=== PATIENT | male | born 1945 | race Caucasian/White ===

== ENCOUNTER 2019-02-23 23:22 | Inpatient (IN) | payer MEDICARE, BC ==
--- NOTE | 2019-02-24 00:19 | EDM.PDOC ---
ED HPI GENERAL MEDICAL PROBLEM - General Chief Complaint: Abdominal Pain Stated Complaint: STOMACH PAIN Time Seen by Provider: 02/24/19 00:00 Source of Information: Reports: Patient History Limitations: Reports: No Limitations - History of Present Illness INITIAL COMMENTS - FREE TEXT/NARRATIVE: 73-year-old male who has had central abdominal pain for the past 9 hours. He has had one bowel movement, some nausea but no vomiting. A small amount of radiation of pain into his back. No fevers or chills. He has a history of diverticulosis, and a remote history of a hernia surgery. He is basically healthy. Onset: Gradual Duration: Hour(s): (9 hours) - Related Data Allergies Allergy/AdvReac Type Severity Reaction Status Date / Time Iodinated Contrast Media Allergy Difficulty Verified 02/23/19 23:42 Breathing Sulfa (Sulfonamide Allergy Hives Verified 02/23/19 23:42 Antibiotics) Home Meds: Home Meds Aspirin 1 tab PO DAILY 02/23/19 [History] Benazepril [Lotensin] 1 tab PO QID 02/23/19 [History] Benzonatate [Tessalon Perle] 1 tab PO BID PRN 02/23/19 [History] Fluticasone Propionate [Flonase] 1 spray INH BID PRN 02/23/19 [History] Omeprazole 1 tab PO ACDINNER 02/23/19 [History] Prednisolone Acetate/Pf [Prednisolone Acet 1% Eye Drop] 1 drop EYEBOTH DAILY [History] Simvastatin [Zocor] 1 tab PO DAILY 02/23/19 [History] Past Medical History Genitourinary History: Reports: Renal Calculus Dermatologic History: Reports: Melanoma - Past Surgical History HEENT Surgical History: Reports: Naso-Sinus Surgery, Tonsillectomy GI Surgical History: Reports: Hernia, Abdominal Social & Family History - Tobacco Use Smoking Status *Q: Never Smoker ED ROS GENERAL - Review of Systems Review Of Systems: See Below Constitutional: Denies: Fever, Chills Respiratory: Denies: Shortness of Breath Cardiovascular: Denies: Chest Pain GI/Abdominal: Reports: Abdominal Pain, Nausea. Denies: Constipation, Diarrhea, Vomiting : Reports: No Symptoms Skin: Reports: No Symptoms Neurological: Reports: No Symptoms ED EXAM, GI/ABD - Physical Exam Exam: See Below Exam Limited By: No Limitations General Appearance: Alert, No Apparent Distress Eyes: Bilateral: Normal Appearance (No jaundice) Respiratory/Chest: No Respiratory Distress, Lungs Clear Cardiovascular: Regular Rate, Rhythm GI/Abdominal Exam: Abnormal Bowel Sounds (Decreased) Extremities: Normal Inspection Neurological: Alert, Oriented Psychiatric: Normal Affect, Normal Mood Skin Exam: Warm Course - Vital Signs Last Recorded V/S: Last Vital Signs Temp 96.3 F 02/24/19 02:56 Pulse 50 L 02/24/19 02:56 Resp 16 02/24/19 02:56 BP 179/67 H 02/24/19 02:56 Pulse Ox 93 L 02/24/19 02:56 - Orders/Labs/Meds Orders: Active Orders 24 hr Category Date Time Status Patient Status [ADT] Routine ADT 02/24/19 02:06 Active Intake and Output [RC] QSHIFT Care 02/24/19 02:08 Active Oxygen Therapy [RC] PRN Care 02/24/19 02:06 Active Up ad Sindi [RC] ASDIRECTED Care 02/24/19 02:05 Active VTE/DVT Education [RC] Per Unit Routine Care 02/24/19 02:06 Active Vital Signs [RC] Q4H Care 02/24/19 02:06 Active Nothing per Oral Now Diet [DIET] Diet 02/24/19 Breakfast Active Ondansetron [Zofran] Med 02/24/19 02:05 Active 4 mg IV Q8H PRN Promethazine [Phenergan] 12.5 mg Med 02/24/19 02:05 Active Sodium Chloride 0.9% [Normal Saline] 50 ml IV Q8H Sequential Compression Device [OM.PC] Per Unit Routine Oth 02/24/19 02:08 Ordered Resuscitation Status Routine Resus Stat 02/24/19 02:05 Ordered Medication Orders Diphenhydramine HCl (Benadryl) 25 - 50 mg IVPUSH Q4H PRN PRN Reason: Itching Diphenhydramine HCl (Benadryl) 25 - 50 mg PO Q4H PRN PRN Reason: Itching Fentanyl (Sublimaze) 10 - 30 mcg IVPUSH Q1H PRN PRN Reason: Pain (severe 7-10) Promethazine HCl 12.5 mg/ (Sodium Chloride) 50.5 mls @ 200 mls/hr IV Q8H PRN PRN Reason: Nausea/Vomiting Sodium Chloride (Normal Saline) 1,000 mls @ 125 mls/hr IV ASDIRECTED COSME Morphine Sulfate (Morphine) 1 - 3 mg IVPUSH Q1H PRN PRN Reason: Pain Last Admin: 02/24/19 03:06 Dose: 2 mg Ondansetron HCl (Zofran) 4 mg IV Q8H PRN PRN Reason: Nausea/Vomiting Scopolamine (Transderm-Scop) 1.5 mg TRDERM Q72H PRN PRN Reason: Nausea Labs: Laboratory Tests 02/24/19 02/24/19 Range/Units 00:14 00:14 WBC 12.8 H (4.5-11.0) K/uL RBC 4.45 (4.30-5.90) M/uL Hgb 13.4 (12.0-15.0) g/dL Hct 40.1 (40.0-54.0) % MCV 90 (80-98) fL MCH 30 (27-31) pg MCHC 33 (32-36) % Plt Count 323 (150-400) K/uL Neut % (Auto) 85 H (36-66) % Lymph % (Auto) 8 L (24-44) % Andrew % (Auto) 6 (2-6) % Eos % (Auto) 0 L (2-4) % Baso % (Auto) 0 (0-1) % Sodium 135 L (140-148) mmol/L Potassium 3.9 (3.6-5.2) mmol/L Chloride 96 L (100-108) mmol/L Carbon Dioxide 30 (21-32) mmol/L Anion Gap 12.9 (5.0-14.0) mmol/L BUN 18 (7-18) mg/dL Creatinine 0.9 (0.8-1.3) mg/dL Est Cr Clr Drug Dosing 68.61 mL/min Estimated GFR (MDRD) > 60 (>60) Glucose 130 H (74-106) mg/dL Calcium 9.5 (8.5-10.1) mg/dL Total Bilirubin 0.4 (0.2-1.0) mg/dL AST 36 (15-37) U/L ALT 92 H (12-78) U/L Alkaline Phosphatase 198 H (46-116) U/L Total Protein 7.8 (6.4-8.2) g/dL Albumin 3.6 (3.4-5.0) g/dL Globulin 4.2 H (2.3-3.5) g/dL Albumin/Globulin Ratio 0.9 L (1.2-2.2) Lipase 50 L (73-393) U/L Meds: Medications Generic Name Dose Route Start Last Admin Trade Name Kellee PRN Reason Stop Dose Admin Diphenhydramine HCl 25 - 50 mg 02/24/19 02:14 Benadryl IVPUSH Q4H PRN Itching Diphenhydramine HCl 25 - 50 mg 02/24/19 02:16 Benadryl PO Q4H PRN Itching Fentanyl 10 - 30 mcg 02/24/19 02:20 Sublimaze IVPUSH Q1H PRN Pain (severe 7-10) Promethazine HCl 12.5 mg/ 50.5 mls @ 200 mls/hr 02/24/19 02:05 Sodium Chloride IV Q8H PRN Nausea/Vomiting Sodium Chloride 1,000 mls @ 125 mls/hr 02/24/19 02:15 Normal Saline IV ASDIRECTED COSME Morphine Sulfate 1 - 3 mg 02/24/19 02:18 02/24/19 03:06 Morphine IVPUSH 2 mg Q1H PRN Administration Pain Ondansetron HCl 4 mg 02/24/19 02:05 Zofran IV Q8H PRN Nausea/Vomiting Scopolamine 1.5 mg 02/24/19 02:14 Transderm-Scop TRDERM Q72H PRN Nausea Discontinued Medications Generic Name Dose Route Start Last Admin Trade Name Kellee PRN Reason Stop Dose Admin Hydromorphone HCl 0.5 mg 02/24/19 01:31 02/24/19 01:56 Dilaudid IVPUSH 02/24/19 01:32 0.5 mg ONETIME ONE Administration Sodium Chloride 1,000 mls @ 250 mls/hr 02/24/19 01:45 02/24/19 01:56 Normal Saline IV 250 mls/hr ASDIRECTED COSME Administration Ondansetron HCl 4 mg 02/24/19 01:38 02/24/19 01:56 Zofran IVPUSH 02/24/19 01:39 4 mg ONETIME ONE Administration - Re-Assessments/Exams Free Text/Narrative Re-Assessment/Exam: 02/24/19 00:19 CBC CMP and lipase were obtained, and an abdomen and pelvis CT without contrast will be obtained. 02/24/19 01:39 White count is mildly elevated at 12.8. Hemoglobin is normal. ALT and alkaline phosphatase are mildly elevated. 02/24/19 01:39 After the patient returned from CT scan he had increased nausea and emesis. An IV was started, patient was given 4 mg of IV Zofran and 0.5 mg of IV Dilaudid. CT appeared to have a small bowel obstruction, awaiting official interpretation. 02/24/19 01:51 IMPRESSION: Prominent dilatation of the mid and distal small bowel extending to an adhesion located in the right upper pelvis. Findings of partial small bowel obstruction. CT of the abdomen shows several small, nonobstructive calculi in the left kidney. CT of the pelvis shows a small amount of free fluid, consistent with partial small bowel obstruction described above. Incompletely examined nodular density in the posterior-lateral left lower lobe, worrisome for carcinoma of the lung. Please see the discussion above. 02/24/19 01:53 Above results were discussed with the patient. Dr. Durbin of surgery was consulted for admission for small bowel obstruction. Departure - Departure Time of Disposition: 02:42 Disposition: Admitted As Inpatient 64 Clinical Impression: Small bowel obstruction Abdominal pain Qualifiers: Abdominal location: generalized Qualified Code(s): R10.84 - Generalized abdominal pain - Discharge Information
[2019-02-24] MEDS ORDERED: HYDROmorphone 0.5 MG/0.5 ML Syringe IVPUSH ONE (01:31)
[2019-02-24] MEDS ORDERED: Ondansetron 4 MG/2 ML SDV IVPUSH ONE (01:38)
[2019-02-24] MEDS ORDERED: Sodium Chloride 0.9% 1,000 ML IV SCH (01:45)
--- NOTE | 2019-02-24 01:50 | CRLCT ---
INDICATION: Abdominal pain COMPARISON: None available TECHNIQUE: CT examination of the abdomen and pelvis was performed without contrast enhancement using 3 mm thick axial sections from the lung bases through the pubic symphysis. Oral contrast was not administered. Please note that all CT scans at this facility use dose modulation, iterative reconstruction, and/or weight-based dosing when appropriate to reduce radiation dose to as low as reasonably achievable. FINDINGS: There is moderate dilatation of the mid and distal small bowel, with no dilatation of the distal ileum. The dilatation extends to a focal point of transition is located in the right upper pelvis on axial image 72 series 2, findings of an adhesion. In the abdomen, the unenhanced liver has a 1 centimeter cyst in the anterior subcapsular region of the medial segment of the liver inferiorly, segment 4B. The rest of the liver is normal in appearance. Spleen, pancreas, and adrenals are normal in appearance. There is a nonobstructive calculus in the upper pole of the left kidney measuring 7 millimeters in diameter. There is a nonobstructive 3 millimeter calculus in the lower pole of the left kidney. The unenhanced kidneys are otherwise normal in appearance. The gallbladder is normal in appearance. The abdominal aorta is normal in caliber with no sign of dilatation. There is no sign of retroperitoneal mass or adenopathy. The stomach, loops of proximal small bowel, and colon in the abdomen are normal in appearance. There is a small fat containing periumbilical hernia. In the pelvis, the retrocecal appendix is the normal in appearance with no sign of inflammatory process. The loops of small bowel and colon in the pelvis are normal in appearance. The prostate is normal in appearance. There is a tiny amount of free fluid in the pelvis, nonspecific. The urinary bladder is normal in appearance. There is no sign of pelvic or inguinal mass or adenopathy. There is an incompletely examined moderate masslike linear density in the posterior-lateral left lung base. This is not clearly an area of scarring or atelectasis, and I am worried that this represents an area of malignancy. Recommend correlation with any previous CT scanning of the chest or abdomen. If no previous examination is available, recommend PET/CT scanning of the chest. There is mild linear density in the posterior right lung base adjacent to the nodular area of density, The rest of the visualized lung base is clear. The osseous structures are normal in appearance for the patient`s age. IMPRESSION: Prominent dilatation of the mid and distal small bowel extending to an adhesion located in the right upper pelvis. Findings of partial small bowel obstruction. CT of the abdomen shows several small, nonobstructive calculi in the left kidney. CT of the pelvis shows a small amount of free fluid, consistent with partial small bowel obstruction described above. Incompletely examined nodular density in the posterior-lateral left lower lobe, worrisome for carcinoma of the lung. Please see the discussion above. Please note that all CT scans at this facility use dose modulation, iterative reconstruction, and/or weight-based dosing when appropriate to reduce radiation dose to as low as reasonably achievable. Dictated by Marquise Ruvalcaba MD @ Feb 24 2019 1:38AM Signed by Dr. Marquise Ruvalcaba @ Feb 24 2019 1:47AM
[2019-02-24] MEDS ORDERED: Promethazine 12.5 MG in Sodium Chloride 0.9% 50 ML IV PRN (02:05)
[2019-02-24] MEDS ORDERED: Scopolamine 1.5 MG Transdermal Patch TRDERM PRN (02:14)
[2019-02-24] MEDS ORDERED: diphenhydrAMINE 50 MG/ML SDV IVPUSH PRN (02:14)
[2019-02-24] MEDS ORDERED: diphenhydrAMINE 25 MG Cap PO PRN (02:16)
[2019-02-24] MEDS: Morphine 2 MG/ML Syringe IVPUSH PRN ×3 (03:06→19:45)
[2019-02-24] MEDS: fentaNYL 100 MCG/2 ML SDV IVPUSH PRN ×3 (04:39→07:46)
[2019-02-24] MEDS: Ondansetron 4 MG/2 ML SDV IV PRN (09:09)
[2019-02-24] MEDS: Sodium Chloride 0.9% 1,000 ML IV SCH ×3 (09:13→22:57)
[2019-02-24] MEDS ORDERED: Meropenem 500 MG SDV ONE (09:25)
[2019-02-24] MEDS ORDERED: Rocuronium 50 MG/5 ML Vial ONE ×2 (09:35→09:36)
[2019-02-24] MEDS ORDERED: Glycopyrrolate 0.2 MG/ML 5 ML MDV ONE (09:35)
[2019-02-24] MEDS ORDERED: Neostigmine Methylsulfate 1 MG/ML 5 ML Syringe ONE (09:35)
[2019-02-24] MEDS ORDERED: Propofol 200 MG/20 ML SDV ONE (09:35)
[2019-02-24] MEDS ORDERED: Dexamethasone 4 MG/ML SDV ONE (09:35)
[2019-02-24] MEDS ORDERED: Succinylcholine 200 MG/10 ML MDV ONE (09:35)
[2019-02-24] MEDS ORDERED: Ondansetron 4 MG/2 ML SDV ONE (09:35)
[2019-02-24] MEDS ORDERED: fentaNYL 250 MCG/5 ML SDV ONE ×2 (09:35→10:36)
[2019-02-24] MEDS ORDERED: ceFAZolin 1 GM Vial ONE (10:31)
[2019-02-24] MEDS ORDERED: Bupivacaine 0.5%/EPINEPHrine 1:200,000 50 ML MDV ONE (11:43)
[2019-02-24] MEDS ORDERED: Ketorolac 60 MG/2 ML SDV ONE (11:48)
[2019-02-24] MEDS: hydrOXYzine HCl 100 MG/2 ML SDV IM PRN (12:21)
[2019-02-25] MEDS: Morphine 2 MG/ML Syringe IVPUSH PRN ×2 (03:31→05:58)
[2019-02-25] MEDS: Sodium Chloride 0.9% 1,000 ML IV SCH (07:08)
[2019-02-25] MEDS ORDERED: Benzonatate 100 MG Cap PO PRN (07:59)
[2019-02-25] MEDS ORDERED: Fluticasone Propionate Nasal Spray 16 GM Bottle NASBOTH PRN (07:59)
--- NOTE | 2019-02-25 08:27 | CONS ---
DATE OF SERVICE: 02/24/2019 REFERRING PHYSICIAN: CONSULTING PHYSICIAN: Johnnie Durbin MD REASON FOR CONSULTATION: Abdominal pain. HISTORY OF PRESENT ILLNESS: A pleasant 73-year-old male with abdominal pain for approximately 8 hours or so. However, this abdominal pain is related to some constipation, which has been progressively worse over the last several weeks. Aside from this, this is a new problem for him. He does have a history of inguinal hernia surgery. The patient also was noted to have diverticulosis. His pain is 3 to 4/10 and marginally controlled with IV pain medication. PAST MEDICAL HISTORY: Kidney stones, melanoma, tonsillectomy, and inguinal hernia as described above. SOCIAL HISTORY: He does not smoke. FAMILY HISTORY: Noncontributory. REVIEW OF SYSTEMS: GENERAL: The patient is appropriate for condition. HEENT: He does have close contact and was being evaluated for bronchitis with recent steroid usage. CARDIOVASCULAR: No history of myocardial infarction. GI: As above. GENITOURINARY: No dysuria. SKIN: No abnormalities. NEUROLOGIC: No abnormalities. SKIN: History of melanoma. PHYSICAL EXAMINATION: VITAL SIGNS: Blood pressure 190/87, pulse 87, respirations 14, and 97% on room air. GENERAL: The patient is resting fairly comfortably. HEENT: Pupils are equal. NECK: Supple. CARDIOVASCULAR: Regular rhythm and rate. RESPIRATORY: Lungs are clear to auscultation bilaterally. ABDOMEN: Moderately distended. Minimal pain with palpation. EXTREMITIES: Full range of motion. NEUROLOGIC: Alert and oriented x3. PSYCH: No gross depression. LABORATORY DATA: Laboratory results show white blood cell count of 12.8, platelets 323,000, and creatinine 0.9. IMAGING: I did review the CT scan, which suggests a small bowel obstruction, partial. ASSESSMENT AND PLAN: The patient will be taken to the operating room for laparoscopic evaluation for possible small bowel resection, open surgery. We discussed risks, benefits, alternatives, and limitations of this plan including, but not limited to infection, bleeding, injury to abdominal structures, abscess formation, anastomotic failure, cardiovascular compromise, and . The patient understands these risks and wishes to proceed. Johnnie Durbin MD /[id number]
--- NOTE | 2019-02-25 08:36 | OR ---
DATE OF PROCEDURE: 02/24/2019 SURGEON: Johnnie Durbin MD PROCEDURES: 1. Repair of internal hernia (90907). 2. Small bowel resection, single anastomosis (58009). 3. Drainage and culture of peritonitis of the abdomen, non-appendiceal (30154). COMPLICATIONS: None. EM PHYSICIAN: None. ANESTHESIA: General/local. RISKS: Risks, benefits, alternatives, and limitations including, but not limited to infection, bleeding, requirement for open surgery, requirement for small bowel resection, cardiovascular collapse, small bowel resection anastomotic failure, abscess, sepsis, and were all explained to the patient as possible risks. He understands and wishes to proceed. PROCEDURE IN DETAIL: The patient was placed in supine position. The abdomen was prepped and draped. Approximately 5 cm superior to the umbilicus, a midline abdominal incision was made. A Veress needle was used to enter the abdomen without abnormality. A drop test was performed without abnormality. 10 mm trocar was entered under direct visualization. This was followed by 3 additional 5s and one would be upsized to a 10 during this procedure. Immediately, it was noted that the patient had a large fluid collection, which was blood tinge, noted in the pelvis. This was related to diffuse peritonitis within the abdomen. This was cultured, suctioned and removed. Multiple images were taken of this. The small bowel was inspected next. The patient had a nonviable piece of small bowel noted in the ileum, mid. This was associated with an internal hernia, due to scarring around the area of the cecum causing significant vascular compromise. Small bowel was then ran in antegrade and retrograde fashion. This took approximately 15 minutes, and during this time, the liver was also inspected and no abnormalities were noted. The colon did not show any gross significant abnormalities. At this point, greater than 15 minutes had gone by, and the area of vascular compromise was reinspected. This was found to be nonviable and required resection. The laparoscopic small bowel resection was then performed. This was performed by transecting the small bowel with zendejas loads using 45 Gy vascular loads. The specimen will be removed and sent to Pathology. The [id number]-lv-[id number] functional anastomosis was then performed next. A suture was then placed approximately 8 cm from the stapled ends. Defects were created in the antimesenteric side and zendejas load stapler x2 was used to create the anastomosis. Additional zendejas load was used to transect the small bowel. This portion was then delivered. The transection was inspected at multiple angles to ensure there was no remnant defect and none was noted. The abdomen was thoroughly irrigated with meropenem-containing solution. The mesentery defect was closed, and Tisseel was applied. Of note, prior to this, once the internal hernia was reduced, the Harmonic Scalpel was used to transect the internal hernia defect, thus negating its future effect. No bleeding was noted during this. The pressure was lowered and no abnormalities were noted. The abdomen was then irrigated with more meropenem-containing solution. The air was removed. Of note, the small bowel was removed from the superior port and was also irrigated along with all the other ports at the end of the procedure. The wounds were closed with 3-0 Vicryl and 4-0 Vicryl in an interrupted and running fashion. Dermabond was applied. The patient tolerated the procedure well. Johnnie Durbin MD /[id number]
[2019-02-25] MEDS: Acetaminophen/HYDROcodone 325-5 MG Tab PO PRN ×3 (09:46→21:41)
[2019-02-25] MEDS: Piperacillin/Tazobactam/Dext 3.375 GM in Premix Bag 1 BAG IV SCH ×3 (09:47→20:16)
[2019-02-25] MEDS: prednisoLONE Acetate 1% Ophth Susp 5 ML Bottle EYEBOTH SCH (09:53)
[2019-02-25] MEDS ORDERED: diphenhydrAMINE 50 MG/ML SDV IVPUSH ONE (10:00)
[2019-02-25] MEDS ORDERED: methylPREDNISolone Sodium Succinate 40 MG/1 ML SDV IVPUSH SCH (10:00)
[2019-02-25] MEDS: D5 1/2 NS w/ 20 mEq/L KCl 1,000 ML IV SCH ×2 (11:30→21:44)
--- NOTE | 2019-02-25 14:44 | CT ---
Chest wo Cont CLINICAL HISTORY: Lung mass TECHNIQUE: Transverse scans were obtained from the thoracic inlet to the lung bases without contrast. Auto dosage reduction and iterative reconstruction techniques employed. COMPARISONS: CT abdomen 02/24/2019 FINDINGS: There is a 4 mm pleural-based pulmonary nodule in the superior segment of the right lower lobe. It is noncalcified. There is a small right pleural effusion. There is a 2 mm noncalcified subpleural nodule in the left apex laterally. There is a 2.4 x 3.7 x 4.5 cm pleural-based irregular shaped masslike density in the left lower lobe posterior laterally. There is a small left pleural effusion. No mediastinal mass or lymphadenopathy is identified. There are a few small lymph nodes in the retrocrural region. Largest on the right measures 14 x 10 mm. No adrenal lesions are seen. IMPRESSION: 2.4 x 3.7 x 4.5 cm irregular pleural-based masslike density, infiltrate or consolidation in the lateral basal segment of the left lower lobe. Neoplasm is not excluded. PET scan should be considered 4 mm pleural-based nodule in the superior segment of the right lower lobe Punctate nodule left upper lobe
[2019-02-26] MEDS: Piperacillin/Tazobactam/Dext 3.375 GM in Premix Bag 1 BAG IV SCH ×2 (02:33→08:42)
[2019-02-26] MEDS: Acetaminophen/HYDROcodone 325-5 MG Tab PO PRN ×3 (02:39→21:02)
[2019-02-26] MEDS: D5 1/2 NS w/ 20 mEq/L KCl 1,000 ML IV SCH (06:28)
[2019-02-26] MEDS: prednisoLONE Acetate 1% Ophth Susp 5 ML Bottle EYEBOTH SCH (08:48)
--- NOTE | 2019-02-26 13:16 | PN ---
DATE OF SERVICE: 02/26/2019 SUBJECTIVE: The patient is doing very well. Pain is well controlled. He is having bowel movements. No nausea, vomiting, shortness of breath, or chest pain. He is tolerating diet well. OBJECTIVE: VITAL SIGNS: Stable. CARDIOVASCULAR: Regular rhythm and rate. RESPIRATORY: Lungs are clear to auscultation bilaterally. ABDOMEN: Incision is healing well. Abdominal binder on. ASSESSMENT: Status post small bowel resection. PLAN: 1. The patient will advance his diet today. 2. We will saline lock him. 3. We will stop his antibiotics. 4. Anticipate discharge in a.m. Johnnie Durbin MD /[id number]
[2019-02-27] MEDS: Ondansetron 4 MG/2 ML SDV IV PRN (01:01)
[2019-02-27] MEDS ORDERED: Calcium Carbonate 500 MG Tab.Chew PO PRN (01:58)
[2019-02-27] MEDS ORDERED: D5 1/2 NS w/ 20 mEq/L KCl 1,000 ML IV SCH (02:00)
[2019-02-27] MEDS: Morphine 2 MG/ML Syringe IVPUSH PRN (02:18)
--- NOTE | 2019-02-27 05:01 | CRLCR ---
Indication: Postop ileus Technique: Abdomen 2 view Comparison: Abdomen and pelvis CT 02/24/2019 Findings/Impression: Suture material is present within the right abdomen with multiple dilated loops of small bowel and relative colonic decompression. Appearance is consistent with a small-bowel obstruction. No pneumatosis or pneumoperitoneum seen. Dictated by Clem Graham MD @ Feb 27 2019 4:58AM Signed by Dr. Clem Graham @ Feb 27 2019 5:00AM
--- NOTE | 2019-02-27 09:25 | CRLCR ---
Indication: Tube placement. Technique: Abdomen 1 view. Comparison: None. Impression: NG tube is in satisfactory position with the tip in the mid to distal stomach. The degree of bowel dilatation has slightly improved. No new abnormality. Dictated by Hadley Parker MD @ 02/27/2019 9:23:10 AM Dictated by: Hadley Parker MD @ 02/27/2019 09:23:39 (Electronically Signed)
[2019-02-27] MEDS: prednisoLONE Acetate 1% Ophth Susp 5 ML Bottle EYEBOTH SCH (10:39)
[2019-02-27] MEDS: D5 1/2 NS w/ 20 mEq/L KCl 1,000 ML IV SCH ×2 (15:13→22:45)
[2019-02-28] MEDS: D5 1/2 NS w/ 20 mEq/L KCl 1,000 ML IV SCH ×3 (07:03→23:36)
[2019-02-28] MEDS: prednisoLONE Acetate 1% Ophth Susp 5 ML Bottle EYEBOTH SCH ×2 (07:35→09:32)
--- NOTE | 2019-02-28 16:54 | PCM.SURGPN ---
- General Info Date of Service: 02/28/19 Date of Surgery/Procedure: 02/24/19 POD#: 4 Post-Op Diagnosis: Internal hernia, small bowel resection. Functional Status: Reports: Pain Controlled, Ambulating, Urinating, Incentive Spirometry. Denies: Tolerating Diet (NPO, NG in place) - Review of Systems General: Reports: No Symptoms HEENT: Reports: No Symptoms Pulmonary: Reports: No Symptoms Cardiovascular: Reports: No Symptoms Gastrointestinal: Reports: Flatus Genitourinary: Reports: No Symptoms Musculoskeletal: Reports: No Symptoms Skin: Reports: No Symptoms Neurological: Reports: No Symptoms Psychiatric: Reports: No Symptoms - Patient Data Vitals - Most Recent: Last Vital Signs Temp 95.9 F 02/28/19 13:59 Pulse 87 02/28/19 13:59 Resp 18 02/28/19 13:59 BP 151/77 H 02/28/19 13:59 Pulse Ox 97 02/28/19 13:59 Weight - Most Recent: 165 lb 15.988 oz I&O - Last 24 Hours: Intake & Output 02/28/19 02/28/19 02/28/19 06:59 14:59 22:59 Intake Total 1735 Output Total 1250 100 Balance 485 -100 Med Orders - Current: Current Medications Hydrocodone Bitart/Acetaminophen ([place] 325-5 Mg) 1 - 2 tab PO Q4H PRN PRN Reason: Abdominal Pain Last Admin: 02/26/19 21:02 Dose: 2 tab Benazepril HCl (Lotensin) 10 mg PO DAILY [facility] Last Admin: 02/28/19 09:32 Dose: Not Given Benzonatate (Tessalon Perles) 100 mg PO BID PRN PRN Reason: Cough Calcium Carbonate/Glycine (Tums) 1,000 mg PO Q2H PRN PRN Reason: Indigestion Last Admin: 02/27/19 02:21 Dose: 1,000 mg Diphenhydramine HCl (Benadryl) 25 - 50 mg IVPUSH Q4H PRN PRN Reason: Itching Diphenhydramine HCl (Benadryl) 25 - 50 mg PO Q4H PRN PRN Reason: Itching Fentanyl (Sublimaze) 10 - 30 mcg IVPUSH Q1H PRN PRN Reason: Pain (severe 7-10) Last Admin: 02/24/19 07:46 Dose: 25 mcg Fluticasone Propionate (Flonase) 0 gm NASBOTH BID PRN PRN Reason: Allergies Hydroxyzine HCl (Vistaril) 100 mg IM Q6H PRN PRN Reason: Nausea Last Admin: 02/24/19 12:21 Dose: 100 mg Promethazine HCl 12.5 mg/ (Sodium Chloride) 50.5 mls @ 200 mls/hr IV Q8H PRN PRN Reason: Nausea/Vomiting Potassium Chloride/Dextrose/Sod Cl (D5 1/2 Ns W/ 20 Meq/L Kcl) 1,000 mls @ 125 mls/hr IV ASDIRECTED [facility] Last Admin: 02/28/19 16:04 Dose: 125 mls/hr Morphine Sulfate (Morphine) 1 - 3 mg IVPUSH Q1H PRN PRN Reason: Pain Last Admin: 02/27/19 02:18 Dose: 2 mg Ondansetron HCl (Zofran) 4 mg IV Q8H PRN PRN Reason: Nausea/Vomiting Last Admin: 02/27/19 01:01 Dose: 4 mg Prednisolone Acetate (Pred Forte 1% Ophth Susp) 0 ml EYEBOTH DAILY [facility] Last Admin: 02/28/19 09:32 Dose: Not Given Scopolamine (Transderm-Scop) 1.5 mg TRDERM Q72H PRN PRN Reason: Nausea Discontinued Medications Alvimopan (Entereg) 12 mg PO ONETIME ONE Stop: 02/24/19 12:31 Last Admin: 02/24/19 12:52 Dose: 12 mg Bupivacaine HCl/Epinephrine Bitart ([place] 0.5%/Epinephrine 1:200,000) Confirm Administered Dose 50 ml .ROUTE .STK-MED ONE Stop: 02/24/19 11:44 Last Admin: 02/24/19 11:45 Dose: 40 ml Cefazolin Sodium (Ancef) Confirm Administered Dose 2 gm .ROUTE .STK-MED ONE Stop: 02/24/19 10:32 Dexamethasone (Dexamethasone) Confirm Administered Dose 4 mg .ROUTE .STK-MED ONE Stop: 02/24/19 09:36 Diphenhydramine HCl (Benadryl) 50 mg IVPUSH ONETIME ONE Stop: 02/25/19 10:01 Fentanyl (Sublimaze) Confirm Administered Dose 250 mcg .ROUTE .STK-MED ONE Stop: 02/24/19 09:36 Fentanyl (Sublimaze) Confirm Administered Dose 250 mcg .ROUTE .K-MED ONE Stop: 02/24/19 10:37 Glycopyrrolate (Robinul) Confirm Administered Dose 1 mg .ROUTE .STK-MED ONE Stop: 02/24/19 09:36 Hydromorphone HCl (Dilaudid) 0.5 mg IVPUSH ONETIME ONE Stop: 02/24/19 01:32 Last Admin: 02/24/19 01:56 Dose: 0.5 mg Sodium Chloride (Normal Saline) 1,000 mls @ 250 mls/hr IV ASDIRECTED [facility] Last Admin: 02/24/19 01:56 Dose: 250 mls/hr Sodium Chloride (Normal Saline) 1,000 mls @ 125 mls/hr IV ASDIRECTED [facility] Last Admin: 02/25/19 07:08 Dose: 125 mls/hr Piperacillin/Tazobactam/ (Dextrose 3.375 gm/ Premix) 50 mls @ 100 mls/hr IV Q6H [facility] Last Admin: 02/26/19 08:42 Dose: 100 mls/hr Potassium Chloride/Dextrose/Sod Cl (D5 1/2 Ns W/ 20 Meq/L Kcl) 1,000 mls @ 125 mls/hr IV ASDIRECTED [facility] Last Admin: 02/26/19 06:28 Dose: 125 mls/hr Potassium Chloride/Dextrose/Sod Cl (D5 1/2 Ns W/ 20 Meq/L Kcl) 1,000 mls @ 50 mls/hr IV ASDIRECTED [facility] Last Infusion: 02/27/19 08:00 Dose: 125 mls/hr Ketorolac Tromethamine (Toradol) Confirm Administered Dose 60 mg .ROUTE .STK- MED ONE Stop: 02/24/19 11:49 Meropenem (Merrem) Confirm Administered Dose 500 mg .ROUTE .[facility]-MED ONE Stop: 02/24/19 09:26 Last Admin: 02/24/19 11:12 Dose: 500 mg Methylprednisolone Sodium Succinate (Solu-Medrol) 40 mg IVPUSH Q4H [facility] Neostigmine Methylsulfate (Neostigmine) Confirm Administered Dose 5 mg .ROUTE .STK-MED ONE Stop: 02/24/19 09:36 Ondansetron HCl (Zofran) 4 mg IVPUSH ONETIME ONE Stop: 02/24/19 01:39 Last Admin: 02/24/19 01:56 Dose: 4 mg Ondansetron HCl (Zofran) Confirm Administered Dose 4 mg .ROUTE .STK-MED ONE Stop: 02/24/19 09:36 Propofol (Diprivan 20 Ml) Confirm Administered Dose 200 mg .ROUTE .STK-MED ONE Stop: 02/24/19 09:36 Rocuronium [place] (Zemuron) Confirm Administered Dose 50 mg .ROUTE .STK-MED ONE Stop: 02/24/19 09:36 Rocuronium [place] (Zemuron) Confirm Administered Dose 50 mg .ROUTE .STK-MED ONE Stop: 02/24/19 09:37 Succinylcholine Chloride (Quelicin) Confirm Administered Dose 200 mg .ROUTE .STK -MED ONE Stop: 02/24/19 09:36 - Exam Wound/Incisions: Healing Well General: Alert, Oriented, Cooperative, No Acute Distress Lungs: Clear to Auscultation, Normal Respiratory Effort Cardiovascular: Regular Rate, Regular Rhythm GI/Abdominal Exam: Abnormal Bowel Sounds (Hypoactive) Extremities: Normal Inspection Skin: Warm, Dry, Intact Neurological: No New Focal Deficit Psy/Mental Status: Alert, Normal Affect, Normal Mood - Problem List & Annotations (1) Small bowel obstruction SNOMED Code(s): 394613793 Code(s): K56.609 - UNSP INTESTNL OBST, UNSP TO PARTIAL VERSUS COMPLETE OBST Status: Acute Current Visit: Yes - Problem List Review Problem List Initiated/Reviewed/Updated: Yes - My Orders Last 24 Hours: Active Orders 24 hr Category Date Time Status Abdomen 2V AP Flat Upright [CR] Routine Exams 03/01/19 05:00 Ordered Medication Orders Hydrocodone Bitart/Acetaminophen (Seth 325-5 Mg) 1 - 2 tab PO Q4H PRN PRN Reason: Abdominal Pain Last Admin: 02/26/19 21:02 Dose: 2 tab Admin: 02/26/19 14:51 Dose: 2 tab Admin: 02/26/19 02:39 Dose: 2 tab Admin: 02/25/19 21:41 Dose: 2 tab Admin: 02/25/19 15:41 Dose: 2 tab Admin: 02/25/19 09:46 Dose: 2 tab Benazepril HCl (Lotensin) 10 mg PO DAILY [facility] Last Admin: 02/28/19 09:32 Dose: Not Given Admin: 02/28/19 07:34 Dose: 10 mg Admin: 02/27/19 10:37 Dose: 10 mg Admin: 02/26/19 08:47 Dose: Admin: 02/25/19 09:55 Dose: 10 mg Benzonatate (Tessalon Perles) 100 mg PO BID PRN PRN Reason: Cough Calcium Carbonate/Glycine (Tums) 1,000 mg PO Q2H PRN PRN Reason: Indigestion Last Admin: 02/27/19 02:21 Dose: 1,000 mg Diphenhydramine HCl (Benadryl) 25 - 50 mg IVPUSH Q4H PRN PRN Reason: Itching Diphenhydramine HCl (Benadryl) 25 - 50 mg PO Q4H PRN PRN Reason: Itching Fentanyl (Sublimaze) 10 - 30 mcg IVPUSH Q1H PRN PRN Reason: Pain (severe 7-10) Last Admin: 02/24/19 07:46 Dose: 25 mcg Admin: 02/24/19 06:32 Dose: 25 mcg Admin: 02/24/19 04:39 Dose: 25 mcg Fluticasone Propionate (Flonase) 0 gm NASBOTH BID PRN PRN Reason: Allergies Hydroxyzine HCl (Vistaril) 100 mg IM Q6H PRN PRN Reason: Nausea Last Admin: 02/24/19 12:21 Dose: 100 mg Promethazine HCl 12.5 mg/ (Sodium Chloride) 50.5 mls @ 200 mls/hr IV Q8H PRN PRN Reason: Nausea/Vomiting Potassium Chloride/Dextrose/Sod Cl (D5 1/2 Ns W/ 20 Meq/L Kcl) 1,000 mls @ 125 mls/hr IV ASDIRECTED [facility] Last Admin: 02/28/19 16:04 Dose: 125 mls/hr Infusion: 02/28/19 15:03 Dose: 125 mls/hr Admin: 02/28/19 07:03 Dose: 125 mls/hr Infusion: 02/28/19 06:45 Dose: 125 mls/hr Admin: 02/27/19 22:45 Dose: 125 mls/hr Infusion: 02/27/19 22:45 Dose: 125 mls/hr Admin: 02/27/19 15:13 Dose: 125 mls/hr Morphine Sulfate (Morphine) 1 - 3 mg IVPUSH Q1H PRN PRN Reason: Pain Last Admin: 02/27/19 02:18 Dose: 2 mg Admin: 02/25/19 05:58 Dose: 2 mg Admin: 02/25/19 03:31 Dose: 2 mg Admin: 02/24/19 19:45 Dose: 2 mg Admin: 02/24/19 09:08 Dose: 2 mg Admin: 02/24/19 03:06 Dose: 2 mg Ondansetron HCl (Zofran) 4 mg IV Q8H PRN PRN Reason: Nausea/Vomiting Last Admin: 02/27/19 01:01 Dose: 4 mg Admin: 02/24/19 09:09 Dose: 4 mg Prednisolone Acetate (Pred Forte 1% Ophth Susp) 0 ml EYEBOTH DAILY [facility] Last Admin: 02/28/19 09:32 Dose: Not Given Admin: 02/28/19 07:35 Dose: 1 ea Admin: 02/27/19 10:39 Dose: 1 ea Admin: 02/26/19 08:48 Dose: Admin: 02/25/19 09:53 Dose: 1 drop Scopolamine (Transderm-Scop) 1.5 mg TRDERM Q72H PRN PRN Reason: Nausea - Assessment Assessment (Free Text/Narrative):: Improving. Leave in NG one more day. - Plan Plan (Free Text/Narrative):: Leave in NG one more day. Flat/upright films in AM.
--- NOTE | 2019-03-01 06:01 | CRLCR ---
Indication: Ileus follow-up Technique: Abdomen 1 view, 2 films Comparison: Abdomen 02/27/2019 Findings/Impression: An orogastric tube is present at the fundus of the stomach with multiple dilated loops of small bowel. Suture material is present within the right abdomen with no significant colonic dilatation. Findings are consistent with a small-bowel obstruction with mild interval increased dilation compared to the study 2 days prior. Dictated by Clem Graham MD @ Mar 01 2019 5:57AM Signed by Dr. Clem Graham @ Mar 01 2019 5:59AM
[2019-03-01] MEDS: D5 1/2 NS w/ 20 mEq/L KCl 1,000 ML IV SCH ×2 (08:08→16:21)
--- NOTE | 2019-03-01 10:08 | PCM.SURGPN ---
- General Info Date of Service: 03/01/19 Date of Surgery/Procedure: 02/24/19 POD#: 5 Post-Op Diagnosis: Internal hernia with infarcted small bowel. Functional Status: Reports: Pain Controlled, Ambulating, Urinating. Denies: Tolerating Diet (NG in place. ) - Review of Systems General: Reports: No Symptoms HEENT: Reports: No Symptoms Pulmonary: Reports: No Symptoms Cardiovascular: Reports: No Symptoms Gastrointestinal: Reports: Flatus, Other (Says he had two small BM's this morning.) Genitourinary: Reports: No Symptoms Musculoskeletal: Reports: No Symptoms Skin: Reports: No Symptoms Neurological: Reports: No Symptoms Psychiatric: Reports: No Symptoms - Patient Data Vitals - Most Recent: Last Vital Signs Temp 95.1 F L 03/01/19 07:00 Pulse 81 03/01/19 07:00 Resp 16 03/01/19 07:00 BP 164/71 H 03/01/19 07:00 Pulse Ox 98 03/01/19 07:00 Weight - Most Recent: 165 lb 15.988 oz I&O - Last 24 Hours: Intake & Output 02/28/19 03/01/19 03/01/19 22:59 06:59 14:59 Intake Total 1285 1607 Output Total 500 400 Balance 785 1207 Med Orders - Current: Current Medications Hydrocodone Bitart/Acetaminophen ([place] 325-5 Mg) 1 - 2 tab PO Q4H PRN PRN Reason: Abdominal Pain Last Admin: 02/26/19 21:02 Dose: 2 tab Benazepril HCl (Lotensin) 10 mg PO DAILY [facility] Last Admin: 02/28/19 09:32 Dose: Not Given Benzonatate (Tessalon Perles) 100 mg PO BID PRN PRN Reason: Cough Calcium Carbonate/Glycine (Tums) 1,000 mg PO Q2H PRN PRN Reason: Indigestion Last Admin: 02/27/19 02:21 Dose: 1,000 mg Diphenhydramine HCl (Benadryl) 25 - 50 mg IVPUSH Q4H PRN PRN Reason: Itching Diphenhydramine HCl (Benadryl) 25 - 50 mg PO Q4H PRN PRN Reason: Itching Fentanyl (Sublimaze) 10 - 30 mcg IVPUSH Q1H PRN PRN Reason: Pain (severe 7-10) Last Admin: 02/24/19 07:46 Dose: 25 mcg Fluticasone Propionate (Flonase) 0 gm NASBOTH BID PRN PRN Reason: Allergies Hydroxyzine HCl (Vistaril) 100 mg IM Q6H PRN PRN Reason: Nausea Last Admin: 02/24/19 12:21 Dose: 100 mg Promethazine HCl 12.5 mg/ (Sodium Chloride) 50.5 mls @ 200 mls/hr IV Q8H PRN PRN Reason: Nausea/Vomiting Potassium Chloride/Dextrose/Sod Cl (D5 1/2 Ns W/ 20 Meq/L Kcl) 1,000 mls @ 125 mls/hr IV ASDIRECTED [facility] Last Admin: 03/01/19 08:08 Dose: 125 mls/hr Morphine Sulfate (Morphine) 1 - 3 mg IVPUSH Q1H PRN PRN Reason: Pain Last Admin: 02/27/19 02:18 Dose: 2 mg Ondansetron HCl (Zofran) 4 mg IV Q8H PRN PRN Reason: Nausea/Vomiting Last Admin: 02/27/19 01:01 Dose: 4 mg Prednisolone Acetate (Pred Forte 1% Ophth Susp) 0 ml EYEBOTH DAILY [facility] Last Admin: 02/28/19 09:32 Dose: Not Given Scopolamine (Transderm-Scop) 1.5 mg TRDERM Q72H PRN PRN Reason: Nausea Discontinued Medications Alvimopan (Entereg) 12 mg PO ONETIME ONE Stop: 02/24/19 12:31 Last Admin: 02/24/19 12:52 Dose: 12 mg Bupivacaine HCl/Epinephrine Bitart (Marcaine 0.5%/Epinephrine 1:200,000) Confirm Administered Dose 50 ml .ROUTE .STK-MED ONE Stop: 02/24/19 11:44 Last Admin: 02/24/19 11:45 Dose: 40 ml Cefazolin Sodium (Ancef) Confirm Administered Dose 2 gm .ROUTE .STK-MED ONE Stop: 02/24/19 10:32 Dexamethasone (Dexamethasone) Confirm Administered Dose 4 mg .ROUTE .STK-MED ONE Stop: 02/24/19 09:36 Diphenhydramine HCl (Benadryl) 50 mg IVPUSH ONETIME ONE Stop: 02/25/19 10:01 Fentanyl (Sublimaze) Confirm Administered Dose 250 mcg .ROUTE .STK-MED ONE Stop: 02/24/19 09:36 Fentanyl (Sublimaze) Confirm Administered Dose 250 mcg .ROUTE .STK-MED ONE Stop: 02/24/19 10:37 Glycopyrrolate (Robinul) Confirm Administered Dose 1 mg .ROUTE .STK-MED ONE Stop: 02/24/19 09:36 Hydromorphone HCl (Dilaudid) 0.5 mg IVPUSH ONETIME ONE Stop: 02/24/19 01:32 Last Admin: 02/24/19 01:56 Dose: 0.5 mg Sodium Chloride (Normal Saline) 1,000 mls @ 250 mls/hr IV ASDIRECTED [facility] Last Admin: 02/24/19 01:56 Dose: 250 mls/hr Sodium Chloride (Normal Saline) 1,000 mls @ 125 mls/hr IV ASDIRECTED [facility] Last Admin: 02/25/19 07:08 Dose: 125 mls/hr Piperacillin/Tazobactam/ (Dextrose 3.375 gm/ Premix) 50 mls @ 100 mls/hr IV Q6H [facility] Last Admin: 02/26/19 08:42 Dose: 100 mls/hr Potassium Chloride/Dextrose/Sod Cl (D5 1/2 Ns W/ 20 Meq/L Kcl) 1,000 mls @ 125 mls/hr IV ASDIRECTED [facility] Last Admin: 02/26/19 06:28 Dose: 125 mls/hr Potassium Chloride/Dextrose/Sod Cl (D5 1/2 Ns W/ 20 Meq/L Kcl) 1,000 mls @ 50 mls/hr IV ASDIRECTED [facility] Last Infusion: 02/27/19 08:00 Dose: 125 mls/hr Ketorolac Tromethamine (Toradol) Confirm Administered Dose 60 mg .ROUTE .STK- MED ONE Stop: 02/24/19 11:49 Meropenem (Merrem) Confirm Administered Dose 500 mg .ROUTE .STK-MED ONE Stop: 02/24/19 09:26 Last Admin: 02/24/19 11:12 Dose: 500 mg Methylprednisolone Sodium Succinate (Solu-Medrol) 40 mg IVPUSH Q4H [facility] Neostigmine Methylsulfate (Neostigmine) Confirm Administered Dose 5 mg .ROUTE .STK-MED ONE Stop: 02/24/19 09:36 Ondansetron HCl (Zofran) 4 mg IVPUSH ONETIME ONE Stop: 02/24/19 01:39 Last Admin: 02/24/19 01:56 Dose: 4 mg Ondansetron HCl (Zofran) Confirm Administered Dose 4 mg .ROUTE .STK-MED ONE Stop: 02/24/19 09:36 Propofol (Diprivan 20 Ml) Confirm Administered Dose 200 mg .ROUTE .STK-MED ONE Stop: 02/24/19 09:36 Rocuronium [place] (Zemuron) Confirm Administered Dose 50 mg .ROUTE .STK-MED ONE Stop: 02/24/19 09:36 Rocuronium [place] (Zemuron) Confirm Administered Dose 50 mg .ROUTE .STK-MED ONE Stop: 02/24/19 09:37 Succinylcholine Chloride (Quelicin) Confirm Administered Dose 200 mg .ROUTE .STK -MED ONE Stop: 02/24/19 09:36 - Exam Wound/Incisions: Healing Well, No Drainage General: Alert, Oriented, Cooperative Lungs: Clear to Auscultation, Normal Respiratory Effort Cardiovascular: Regular Rate, Regular Rhythm GI/Abdominal Exam: Abnormal Bowel Sounds (Quiet.) Extremities: Normal Inspection Skin: Warm, Dry, Intact Neurological: No New Focal Deficit Psy/Mental Status: Alert, Normal Affect - Problem List & Annotations (1) Small bowel obstruction SNOMED Code(s): 379030061 Code(s): K56.609 - UNSP INTESTNL OBST, UNSP TO PARTIAL VERSUS COMPLETE OBST Status: Acute Current Visit: Yes - Problem List Review Problem List Initiated/Reviewed/Updated: Yes - My Orders Last 24 Hours: Medication Orders Hydrocodone Bitart/Acetaminophen ([place] 325-5 Mg) 1 - 2 tab PO Q4H PRN PRN Reason: Abdominal Pain Last Admin: 02/26/19 21:02 Dose: 2 tab Admin: 02/26/19 14:51 Dose: 2 tab Admin: 02/26/19 02:39 Dose: 2 tab Admin: 02/25/19 21:41 Dose: 2 tab Admin: 02/25/19 15:41 Dose: 2 tab Admin: 02/25/19 09:46 Dose: 2 tab Benazepril HCl (Lotensin) 10 mg PO DAILY [facility] Last Admin: 02/28/19 09:32 Dose: Not Given Admin: 02/28/19 07:34 Dose: 10 mg Admin: 02/27/19 10:37 Dose: 10 mg Admin: 02/26/19 08:47 Dose: Admin: 02/25/19 09:55 Dose: 10 mg Benzonatate (Tessalon Perles) 100 mg PO BID PRN PRN Reason: Cough Calcium Carbonate/Glycine (Tums) 1,000 mg PO Q2H PRN PRN Reason: Indigestion Last Admin: 02/27/19 02:21 Dose: 1,000 mg Diphenhydramine HCl (Benadryl) 25 - 50 mg IVPUSH Q4H PRN PRN Reason: Itching Diphenhydramine HCl (Benadryl) 25 - 50 mg PO Q4H PRN PRN Reason: Itching Fentanyl (Sublimaze) 10 - 30 mcg IVPUSH Q1H PRN PRN Reason: Pain (severe 7-10) Last Admin: 02/24/19 07:46 Dose: 25 mcg Admin: 02/24/19 06:32 Dose: 25 mcg Admin: 02/24/19 04:39 Dose: 25 mcg Fluticasone Propionate (Flonase) 0 gm NASBOTH BID PRN PRN Reason: Allergies Hydroxyzine HCl (Vistaril) 100 mg IM Q6H PRN PRN Reason: Nausea Last Admin: 02/24/19 12:21 Dose: 100 mg Promethazine HCl 12.5 mg/ (Sodium Chloride) 50.5 mls @ 200 mls/hr IV Q8H PRN PRN Reason: Nausea/Vomiting Potassium Chloride/Dextrose/Sod Cl (D5 1/2 Ns W/ 20 Meq/L Kcl) 1,000 mls @ 125 mls/hr IV ASDIRECTED [facility] Last Admin: 03/01/19 08:08 Dose: 125 mls/hr Infusion: 03/01/19 07:36 Dose: 125 mls/hr Admin: 02/28/19 23:36 Dose: 125 mls/hr Infusion: 02/28/19 23:36 Dose: 125 mls/hr Admin: 02/28/19 16:04 Dose: 125 mls/hr Infusion: 02/28/19 15:03 Dose: 125 mls/hr Admin: 02/28/19 07:03 Dose: 125 mls/hr Infusion: 02/28/19 06:45 Dose: 125 mls/hr Admin: 02/27/19 22:45 Dose: 125 mls/hr Infusion: 02/27/19 22:45 Dose: 125 mls/hr Admin: 02/27/19 15:13 Dose: 125 mls/hr Morphine Sulfate (Morphine) 1 - 3 mg IVPUSH Q1H PRN PRN Reason: Pain Last Admin: 02/27/19 02:18 Dose: 2 mg Admin: 02/25/19 05:58 Dose: 2 mg Admin: 02/25/19 03:31 Dose: 2 mg Admin: 02/24/19 19:45 Dose: 2 mg Admin: 02/24/19 09:08 Dose: 2 mg Admin: 02/24/19 03:06 Dose: 2 mg Ondansetron HCl (Zofran) 4 mg IV Q8H PRN PRN Reason: Nausea/Vomiting Last Admin: 02/27/19 01:01 Dose: 4 mg Admin: 02/24/19 09:09 Dose: 4 mg Prednisolone Acetate (Pred Forte 1% Ophth Susp) 0 ml EYEBOTH DAILY [facility] Last Admin: 02/28/19 09:32 Dose: Not Given Admin: 02/28/19 07:35 Dose: 1 ea Admin: 02/27/19 10:39 Dose: 1 ea Admin: 02/26/19 08:48 Dose: Admin: 02/25/19 09:53 Dose: 1 drop Scopolamine (Transderm-Scop) 1.5 mg TRDERM Q72H PRN PRN Reason: Nausea - Assessment Assessment (Free Text/Narrative):: He denies abdominal pain. He says he passed gas and had two small BM's this morning after his X-ray. His abdominal films do not appear improved. His abdomen is quiet. - Plan Plan (Free Text/Narrative):: He appears well. Possible ileus. Dr. Guevara will see this week end.
[2019-03-01] MEDS: prednisoLONE Acetate 1% Ophth Susp 5 ML Bottle EYEBOTH SCH (10:15)
[2019-03-02] MEDS: D5 1/2 NS w/ 20 mEq/L KCl 1,000 ML IV SCH ×3 (00:25→17:46)
--- NOTE | 2019-03-02 06:04 | CRLCR ---
Indication: Small-bowel obstruction follow-up Technique: Abdomen 2 view Comparison: None Findings/Impression: Nasogastric tube is redemonstrated at the fundus of the stomach. Dilated loops of small bowel are redemonstrated consistent with small-bowel obstruction with interval increased caliber compared to the study 1 day prior. No pneumoperitoneum or pneumatosis seen. Dictated by Clem Graham MD @ Mar 02 2019 6:01AM Signed by Dr. Clem Graham @ Mar 02 2019 6:02AM
[2019-03-02] MEDS: prednisoLONE Acetate 1% Ophth Susp 5 ML Bottle EYEBOTH SCH (08:20)
[2019-03-02] MEDS ORDERED: Bisacodyl 10 MG Supp RECTAL PRN (08:41)
[2019-03-02] MEDS ORDERED: Bisacodyl 10 MG Supp RECTAL ONE (09:00)
[2019-03-03] MEDS: D5 1/2 NS w/ 20 mEq/L KCl 1,000 ML IV SCH ×3 (03:53→18:15)
--- NOTE | 2019-03-03 06:10 | CRLCR ---
Indication: Ileus Technique: Abdomen 2 view Comparison: Abdomen 03/02/2019 Findings/Impression: A nasogastric tube is redemonstrated at the body of the stomach. Suture material is present in the right abdomen. Prominent dilated loops of small bowel are present suggestive of a small-bowel obstruction with caliber of the small bowel similar to the prior exam. No pneumatosis or pneumoperitoneum seen. Dictated by Clem Graham MD @ Mar 03 2019 6:06AM Signed by Dr. Clem Graham @ Mar 03 2019 6:08AM
[2019-03-03] MEDS: prednisoLONE Acetate 1% Ophth Susp 5 ML Bottle EYEBOTH SCH (09:40)
[2019-03-03] MEDS ORDERED: fentaNYL 250 MCG/5 ML SDV ONE ×2 (11:52→13:33)
[2019-03-03] MEDS ORDERED: Succinylcholine 200 MG/10 ML MDV ONE (11:54)
[2019-03-03] MEDS ORDERED: Dexamethasone 4 MG/ML SDV ONE (11:54)
[2019-03-03] MEDS ORDERED: Ondansetron 4 MG/2 ML SDV ONE (11:54)
[2019-03-03] MEDS ORDERED: Rocuronium 50 MG/5 ML Vial ONE (11:54)
[2019-03-03] MEDS ORDERED: Propofol 200 MG/20 ML SDV ONE (11:54)
[2019-03-03] MEDS ORDERED: Glycopyrrolate 0.2 MG/ML 5 ML MDV ONE (11:54)
[2019-03-03] MEDS ORDERED: Neostigmine Methylsulfate 1 MG/ML 5 ML Syringe ONE (11:54)
[2019-03-03] MEDS ORDERED: Lactated Ringers 1,000 ML ONE (12:25)
[2019-03-03] MEDS ORDERED: Sodium Chloride 0.9% 10 ML ONE (12:35)
[2019-03-03] MEDS ORDERED: cefOXitin 2 GM Vial ONE (12:35)
[2019-03-03] MEDS ORDERED: Sugammadex Sodium 200 MG/2 ML VIAL ONE (13:29)
[2019-03-03] MEDS ORDERED: hydrALAZINE 20 MG/ML SDV ONE (13:42)
[2019-03-03] MEDS ORDERED: hydrOXYzine HCl 100 MG/2 ML SDV IM ONE (14:09)
[2019-03-03] MEDS ORDERED: hydrOXYzine HCl 100 MG/2 ML SDV ONE (14:14)
[2019-03-03] MEDS: Morphine 2 MG/ML Syringe IVPUSH PRN ×3 (15:35→22:33)
[2019-03-03] MEDS: fentaNYL 100 MCG/2 ML SDV IVPUSH PRN (19:42)
[2019-03-04] MEDS: Morphine 2 MG/ML Syringe IVPUSH PRN ×7 (00:37→20:30)
[2019-03-04] MEDS: hydrOXYzine HCl 100 MG/2 ML SDV IM PRN (02:09)
[2019-03-04] MEDS: D5 1/2 NS w/ 20 mEq/L KCl 1,000 ML IV SCH ×2 (02:16→10:37)
[2019-03-04] MEDS: fentaNYL 100 MCG/2 ML SDV IVPUSH PRN ×4 (03:18→22:08)
[2019-03-04] MEDS: prednisoLONE Acetate 1% Ophth Susp 5 ML Bottle EYEBOTH SCH (08:10)
--- NOTE | 2019-03-04 08:30 | OR ---
DATE OF PROCEDURE: 03/03/2019 SURGEON: De Jo MD PREOPERATIVE DIAGNOSES: 1. Small bowel obstruction. 2. Reducible umbilical hernia. 3. Inflamed left abdominal port site. POSTOPERATIVE DIAGNOSES: 1. Adhesive small bowel obstruction. 2. Umbilical hernia. 3. Left port site seroma. PROCEDURE: 1. Exploratory laparotomy with lysis of adhesions. 2. Repair of umbilical hernia. 3. Drain, left port site seroma. ANESTHESIA: General endotracheal. INDICATION: One week ago today, Dr. Durbin took this 73-year-old white male to the operating room to treat internal hernia with a small bowel resection. The plan was for him to go home 4 days ago, but he became bloated and nauseated. He was distended. An NG tube was placed. X-ray is consistent with a small-bowel obstruction. He had no pain with this. We got him up walking to see if this could resolve, and after 4 days of NG suction and him feeling fine, but no flatus and the x-ray still appearing consistent with a small bowel obstruction, he was taken to the operating room for an exploratory laparotomy. He is also noted to have a reducible umbilical hernia. His left laparoscopic port sites appeared inflamed. I counseled him for surgery, including risks and alternatives, and he gave his informed consent to proceed. DESCRIPTION OF PROCEDURE: After adequate general endotracheal anesthesia was obtained, a Valdes catheter was placed. His abdomen was prepped and draped in the usual sterile fashion. The leg compression stockings were in place and used during the entire procedure. Time-out was held. A midline incision was made from just above to just below the umbilicus, curving around the right side of the umbilicus. This was carried deep using Bovie cautery to the fascia. The fascia was incised. The underlying peritoneum was elevated and incised. The peritoneal incision was extended superiorly and inferiorly to the length of the skin incision using Bovie cautery, while protecting underlying structures. We encountered distended small bowel. This was elevated up out of the incision, and we got down near the anastomosis. It was noted that there was an obstructed segment of small bowel adherent to the suture of the anastomosis. This was the cause of the obstruction. This was easily released with succus entericus easily being able to pass across the obstruction. The anastomosis looked well, so the small bowel was placed back into the abdomen. The umbilical hernia sac was excised and sent to pathology, along with some of the contents. We then closed the fascia with a running stitch of #2 Vicryl, which included the umbilical hernia defect. Incision was irrigated and suctioned dry. Skin romy were placed to approximate the skin. We then removed the Dermabond from the left port site and released a seroma. We cultured this wound and left his wound open. A quarter-inch iodoform gauze was placed in the incision. A sterile dressing was applied. The anesthesia was reversed. He was extubated and brought to recovery room in good condition. De Jo MD /[id number]
--- NOTE | 2019-03-04 12:13 | PCM.SURGPN ---
- General Info Date of Service: 03/04/19 Date of Surgery/Procedure: 03/03/19 POD#: 1 Post-Op Diagnosis: Adhesive small bowel obstruction Functional Status: Reports: Pain Controlled (Now. "Bad last night"), Urinating , Incentive Spirometry. Denies: Tolerating Diet - Review of Systems General: Reports: No Symptoms HEENT: Reports: No Symptoms Pulmonary: Reports: No Symptoms Cardiovascular: Reports: No Symptoms Gastrointestinal: Reports: Abdominal Pain. Denies: Flatus Genitourinary: Reports: No Symptoms Musculoskeletal: Reports: No Symptoms Skin: Reports: No Symptoms Neurological: Reports: No Symptoms Psychiatric: Reports: No Symptoms - Patient Data Vitals - Most Recent: Last Vital Signs Temp 95.9 F 03/04/19 06:28 Pulse 79 03/04/19 06:28 Resp 20 03/04/19 06:28 BP 142/56 H 03/04/19 08:10 Pulse Ox 95 03/04/19 06:28 Weight - Most Recent: 165 lb 15.988 oz I&O - Last 24 Hours: Intake & Output 03/03/19 03/04/19 03/04/19 22:59 06:59 14:59 Intake Total 857 1525 Output Total 225 900 Balance 632 625 Lab Results Last 24 Hrs: Laboratory Results - last 24 hr 03/04/19 03/04/19 Range/Units 04:48 04:48 WBC 12.5 H (4.5-11.0) K/uL RBC 4.09 L (4.30-5.90) M/uL Hgb 11.9 L (12.0-15.0) g/dL Hct 37.3 L (40.0-54.0) % MCV 91 (80-98) fL MCH 29 (27-31) pg MCHC 32 (32-36) % Plt Count 376 (150-400) K/uL Sodium 136 L (140-148) mmol/L Potassium 4.2 (3.6-5.2) mmol/L Chloride 101 (100-108) mmol/L Carbon Dioxide 27 (21-32) mmol/L Anion Gap 12.2 (5.0-14.0) mmol/L BUN 11 (7-18) mg/dL Creatinine 0.9 (0.8-1.3) mg/dL Est Cr Clr Drug Dosing 68.86 mL/min Estimated GFR (MDRD) > 60 (>60) Glucose 150 H (74-106) mg/dL Calcium 8.7 (8.5-10.1) mg/dL Jacques Results Last 24 Hrs: Microbiology 03/03/19 13:12 Gram Stain - Final Abdomen - Incision Wound Culture - Preliminary NO GROWTH AFTER 1 DAY Med Orders - Current: Current Medications Hydrocodone Bitart/Acetaminophen ([place] 325-5 Mg) 1 - 2 tab PO Q4H PRN PRN Reason: Abdominal Pain Last Admin: 02/26/19 21:02 Dose: 2 tab Benazepril HCl (Lotensin) 10 mg PO DAILY [facility] Last Admin: 03/04/19 08:10 Dose: 10 mg Benzonatate (Tessalon Perles) 100 mg PO BID PRN PRN Reason: Cough Bisacodyl (Dulcolax) 10 mg RECTAL ASDIRECTED PRN PRN Reason: BOWEL MOVEMENT Calcium Carbonate/Glycine (Tums) 1,000 mg PO Q2H PRN PRN Reason: Indigestion Last Admin: 02/27/19 02:21 Dose: 1,000 mg Diphenhydramine HCl (Benadryl) 25 - 50 mg IVPUSH Q4H PRN PRN Reason: Itching Diphenhydramine HCl (Benadryl) 25 - 50 mg PO Q4H PRN PRN Reason: Itching Fentanyl (Sublimaze) 50 mcg IVPUSH Q6H PRN PRN Reason: Pain (severe 7-10) Last Admin: 03/04/19 10:13 Dose: 50 mcg Fluticasone Propionate (Flonase) 0 gm NASBOTH BID PRN PRN Reason: Allergies Hydroxyzine HCl (Vistaril) 100 mg IM Q6H PRN PRN Reason: Nausea Last Admin: 03/04/19 02:09 Dose: 100 mg Promethazine HCl 12.5 mg/ (Sodium Chloride) 50.5 mls @ 200 mls/hr IV Q8H PRN PRN Reason: Nausea/Vomiting Azithromycin 250 mg/ Sodium (Chloride) 150 mls @ 150 mls/hr IV Q24H [facility] Last Admin: 03/03/19 09:27 Dose: 150 mls/hr Potassium Chloride/Dextrose/Sod Cl (D5 1/2 Ns W/ 20 Meq/L Kcl) 1,000 mls @ 125 mls/hr IV ASDIRECTED [facility] Last Admin: 03/04/19 10:37 Dose: 125 mls/hr Morphine Sulfate (Morphine) 1 - 3 mg IVPUSH Q1H PRN PRN Reason: Pain Last Admin: 03/04/19 08:11 Dose: 3 mg Ondansetron HCl (Zofran) 4 mg IV Q8H PRN PRN Reason: Nausea/Vomiting Last Admin: 02/27/19 01:01 Dose: 4 mg Prednisolone Acetate (Pred Forte 1% Ophth Susp) 0 ml EYEBOTH DAILY [facility] Last Admin: 03/04/19 08:10 Dose: 1 ea Scopolamine (Transderm-Scop) 1.5 mg TRDERM Q72H PRN PRN Reason: Nausea Discontinued Medications Alvimopan (Entereg) 12 mg PO ONETIME ONE Stop: 02/24/19 12:31 Last Admin: 02/24/19 12:52 Dose: 12 mg Bisacodyl (Dulcolax) 10 mg RECTAL ONETIME ONE Stop: 03/02/19 09:01 Last Admin: 03/02/19 09:19 Dose: 10 mg Bupivacaine HCl/Epinephrine Bitart (Marcaine 0.5%/Epinephrine 1:200,000) Confirm Administered Dose 50 ml .ROUTE .STK-MED ONE Stop: 02/24/19 11:44 Last Admin: 02/24/19 11:45 Dose: 40 ml Cefazolin Sodium (Ancef) Confirm Administered Dose 2 gm .ROUTE .STK-MED ONE Stop: 02/24/19 10:32 Cefoxitin Sodium (Mefoxin) Confirm Administered Dose 2 gm .ROUTE .STK-MED ONE Stop: 03/03/19 12:36 Dexamethasone (Dexamethasone) Confirm Administered Dose 4 mg .ROUTE .STK-MED ONE Stop: 02/24/19 09:36 Dexamethasone (Dexamethasone) Confirm Administered Dose 4 mg .ROUTE .STK-MED ONE Stop: 03/03/19 11:55 Diphenhydramine HCl (Benadryl) 50 mg IVPUSH ONETIME ONE Stop: 02/25/19 10:01 Fentanyl (Sublimaze) 10 - 30 mcg IVPUSH Q1H PRN PRN Reason: Pain (severe 7-10) Last Admin: 02/24/19 07:46 Dose: 25 mcg Fentanyl (Sublimaze) Confirm Administered Dose 250 mcg .ROUTE .STK-MED ONE Stop: 02/24/19 09:36 Fentanyl (Sublimaze) Confirm Administered Dose 250 mcg .ROUTE .STK-MED ONE Stop: 02/24/19 10:37 Fentanyl (Sublimaze) Confirm Administered Dose 250 mcg .ROUTE .STK-MED ONE Stop: 03/03/19 11:53 Fentanyl (Sublimaze) Confirm Administered Dose 250 mcg .ROUTE .STK-MED ONE Stop: 03/03/19 13:34 Glycopyrrolate (Robinul) Confirm Administered Dose 1 mg .ROUTE .STK-MED ONE Stop: 02/24/19 09:36 Glycopyrrolate (Robinul) Confirm Administered Dose 1 mg .ROUTE .STK-MED ONE Stop: 03/03/19 11:55 Hydralazine HCl (Apresoline) Confirm Administered Dose 20 mg .ROUTE .STK-MED ONE Stop: 03/03/19 13:43 Hydromorphone HCl (Dilaudid) 0.5 mg IVPUSH ONETIME ONE Stop: 02/24/19 01:32 Last Admin: 02/24/19 01:56 Dose: 0.5 mg Hydroxyzine HCl (Vistaril) 50 mg IM ONETIME ONE Stop: 03/03/19 14:10 Last Admin: 03/03/19 14:09 Dose: 50 mg Hydroxyzine HCl (Vistaril) Confirm Administered Dose 100 mg .ROUTE .STK-MED ONE Stop: 03/03/19 14:15 Last Admin: 03/03/19 16:28 Dose: Not Given Sodium Chloride (Normal Saline) 1,000 mls @ 250 mls/hr IV ASDIRECTED [facility] Last Admin: 02/24/19 01:56 Dose: 250 mls/hr Sodium Chloride (Normal Saline) 1,000 mls @ 125 mls/hr IV ASDIRECTED [facility] Last Admin: 02/25/19 07:08 Dose: 125 mls/hr Piperacillin/Tazobactam/ (Dextrose 3.375 gm/ Premix) 50 mls @ 100 mls/hr IV Q6H [facility] Last Admin: 02/26/19 08:42 Dose: 100 mls/hr Potassium Chloride/Dextrose/Sod Cl (D5 1/2 Ns W/ 20 Meq/L Kcl) 1,000 mls @ 125 mls/hr IV ASDIRECTED [facility] Last Admin: 02/26/19 06:28 Dose: 125 mls/hr Potassium Chloride/Dextrose/Sod Cl (D5 1/2 Ns W/ 20 Meq/L Kcl) 1,000 mls @ 50 mls/hr IV ASDIRECTED [facility] Last Infusion: 02/27/19 08:00 Dose: 125 mls/hr Potassium Chloride/Dextrose/Sod Cl (D5 1/2 Ns W/ 20 Meq/L Kcl) 1,000 mls @ 125 mls/hr IV ASDIRECTED [facility] Last Admin: 03/02/19 08:20 Dose: 125 mls/hr Potassium Chloride/Dextrose/Sod Cl (D5 1/2 Ns W/ 20 Meq/L Kcl) 1,000 mls @ 100 mls/hr IV ASDIRECTED [facility] Last Admin: 03/03/19 03:53 Dose: 100 mls/hr Lactated Ringer's (Ringers, Lactated) Confirm Administered Dose 1,000 mls @ as directed .ROUTE .STK-MED ONE Stop: 03/03/19 12:26 Sodium Chloride (Normal Saline) Confirm Administered Dose 10 mls @ as directed .ROUTE .STK-MED ONE Stop: 03/03/19 12:36 Ketorolac Tromethamine (Toradol) Confirm Administered Dose 60 mg .ROUTE .STK- MED ONE Stop: 02/24/19 11:49 Meropenem (Merrem) Confirm Administered Dose 500 mg .ROUTE .STK-MED ONE Stop: 02/24/19 09:26 Last Admin: 02/24/19 11:12 Dose: 500 mg Methylprednisolone Sodium Succinate (Solu-Medrol) 40 mg IVPUSH Q4H [facility] Neostigmine Methylsulfate (Neostigmine) Confirm Administered Dose 5 mg .ROUTE .STK-MED ONE Stop: 02/24/19 09:36 Neostigmine Methylsulfate (Neostigmine) Confirm Administered Dose 5 mg .ROUTE .STK-MED ONE Stop: 03/03/19 11:55 Ondansetron HCl (Zofran) 4 mg IVPUSH ONETIME ONE Stop: 02/24/19 01:39 Last Admin: 02/24/19 01:56 Dose: 4 mg Ondansetron HCl (Zofran) Confirm Administered Dose 4 mg .ROUTE .STK-MED ONE Stop: 02/24/19 09:36 Ondansetron HCl (Zofran) Confirm Administered Dose 4 mg .ROUTE .STK-MED ONE Stop: 03/03/19 11:55 Propofol (Diprivan 20 Ml) Confirm Administered Dose 200 mg .ROUTE .STK-MED ONE Stop: 02/24/19 09:36 Propofol (Diprivan 20 Ml) Confirm Administered Dose 200 mg .ROUTE .STK-MED ONE Stop: 03/03/19 11:55 Rocuronium [place] (Zemuron) Confirm Administered Dose 50 mg .ROUTE .STK-MED ONE Stop: 02/24/19 09:36 Rocuronium [place] (Zemuron) Confirm Administered Dose 50 mg .ROUTE .STK-MED ONE Stop: 02/24/19 09:37 Rocuronium [place] (Zemuron) Confirm Administered Dose 50 mg .ROUTE .STK-MED ONE Stop: 03/03/19 11:55 Succinylcholine Chloride (Quelicin) Confirm Administered Dose 200 mg .ROUTE .STK -MED ONE Stop: 02/24/19 09:36 Succinylcholine Chloride (Quelicin) Confirm Administered Dose 200 mg .ROUTE .STK -MED ONE Stop: 03/03/19 11:55 Sugammadex Sodium (Bridion) Confirm Administered Dose 200 mg .ROUTE .STK-MED ONE Stop: 03/03/19 13:30 - Exam Wound/Incisions: Dressing Dry and Intact General: Alert, Oriented, Cooperative, No Acute Distress Lungs: Clear to Auscultation, Normal Respiratory Effort Cardiovascular: Regular Rate, Regular Rhythm GI/Abdominal Exam: Abnormal Bowel Sounds (Hypoactive) Extremities: No Pedal Edema Skin: Warm, Dry, Intact Neurological: No New Focal Deficit Psy/Mental Status: Alert, Normal Affect, Normal Mood - Problem List & Annotations (1) Small bowel obstruction SNOMED Code(s): 949597794 Code(s): K56.609 - UNSP INTESTNL OBST, UNSP TO PARTIAL VERSUS COMPLETE OBST Status: Acute Current Visit: Yes - Problem List Review Problem List Initiated/Reviewed/Updated: Yes - My Orders Last 24 Hours: Active Orders 24 hr Category Date Time Status Transfer Patient (Change bed) [ADT] Routine ADT 03/03/19 13:36 Ordered Central Line Assessment [RC] QSHIFT Care 03/03/19 13:55 Active Wound Care [RC] Q12H Care 03/04/19 12:06 Ordered Consult to Dietary [Consult to Cleat Feeder] [CONS] Cons 03/03/19 13:55 Active Routine BASIC METABOLIC PANEL,BMP [CHEM] DAILY Lab 03/05/19 05:11 Ordered BASIC METABOLIC PANEL,BMP [CHEM] DAILY Lab 03/06/19 05:11 Ordered BASIC METABOLIC PANEL,BMP [CHEM] DAILY Lab 03/07/19 05:11 Ordered BASIC METABOLIC PANEL,BMP [CHEM] DAILY Lab 03/08/19 05:11 Ordered BASIC METABOLIC PANEL,BMP [CHEM] DAILY Lab 03/09/19 05:11 Ordered CBC W/O DIFF,HEMOGRAM [HEME] DAILY Lab 03/05/19 05:11 Ordered CBC W/O DIFF,HEMOGRAM [HEME] DAILY Lab 03/06/19 05:11 Ordered CBC W/O DIFF,HEMOGRAM [HEME] DAILY Lab 03/07/19 05:11 Ordered CBC W/O DIFF,HEMOGRAM [HEME] DAILY Lab 03/08/19 05:11 Ordered CBC W/O DIFF,HEMOGRAM [HEME] DAILY Lab 03/09/19 05:11 Ordered CULTURE ANAEROBIC [RM] Routine Lab 03/03/19 13:12 Results CULTURE WOUND + SMEAR [RM] Routine Lab 03/03/19 13:12 Results D5 1/2 NS w/ 20 mEq/L KCl 1,000 ml Med 03/03/19 13:45 Active IV ASDIRECTED fentaNYL [Sublimaze] Med 03/03/19 13:38 Active 50 mcg IVPUSH Q6H PRN Central Line PICC Insertion [Central Venous Line Oth 03/03/19 13:54 Ordered Insertion] [OM.PC] Routine Medication Orders Hydrocodone Bitart/Acetaminophen ([place] 325-5 Mg) 1 - 2 tab PO Q4H PRN PRN Reason: Abdominal Pain Last Admin: 02/26/19 21:02 Dose: 2 tab Admin: 02/26/19 14:51 Dose: 2 tab Admin: 02/26/19 02:39 Dose: 2 tab Admin: 02/25/19 21:41 Dose: 2 tab Admin: 02/25/19 15:41 Dose: 2 tab Admin: 02/25/19 09:46 Dose: 2 tab Benazepril HCl (Lotensin) 10 mg PO DAILY [facility] Last Admin: 03/04/19 08:10 Dose: 10 mg Admin: 03/03/19 09:40 Dose: 10 mg Admin: 03/02/19 08:19 Dose: 10 mg Admin: 03/01/19 10:15 Dose: 10 mg Admin: 02/28/19 09:32 Dose: Not Given Admin: 02/28/19 07:34 Dose: 10 mg Admin: 02/27/19 10:37 Dose: 10 mg Admin: 02/26/19 08:47 Dose: Admin: 02/25/19 09:55 Dose: 10 mg Benzonatate (Tessalon Perles) 100 mg PO BID PRN PRN Reason: Cough Bisacodyl (Dulcolax) 10 mg RECTAL ASDIRECTED PRN PRN Reason: BOWEL MOVEMENT Calcium Carbonate/Glycine (Tums) 1,000 mg PO Q2H PRN PRN Reason: Indigestion Last Admin: 02/27/19 02:21 Dose: 1,000 mg Diphenhydramine HCl (Benadryl) 25 - 50 mg IVPUSH Q4H PRN PRN Reason: Itching Diphenhydramine HCl (Benadryl) 25 - 50 mg PO Q4H PRN PRN Reason: Itching Fentanyl (Sublimaze) 50 mcg IVPUSH Q6H PRN PRN Reason: Pain (severe 7-10) Last Admin: 03/04/19 10:13 Dose: 50 mcg Admin: 03/04/19 03:18 Dose: 50 mcg Admin: 03/03/19 19:42 Dose: 50 mcg Fluticasone Propionate (Flonase) 0 gm NASBOTH BID PRN PRN Reason: Allergies Hydroxyzine HCl (Vistaril) 100 mg IM Q6H PRN PRN Reason: Nausea Last Admin: 03/04/19 02:09 Dose: 100 mg Admin: 02/24/19 12:21 Dose: 100 mg Promethazine HCl 12.5 mg/ (Sodium Chloride) 50.5 mls @ 200 mls/hr IV Q8H PRN PRN Reason: Nausea/Vomiting Azithromycin 250 mg/ Sodium (Chloride) 150 mls @ 150 mls/hr IV Q24H [facility] Last Admin: 03/03/19 09:27 Dose: 150 mls/hr Admin: 03/02/19 11:12 Dose: 150 mls/hr Potassium Chloride/Dextrose/Sod Cl (D5 1/2 Ns W/ 20 Meq/L Kcl) 1,000 mls @ 125 mls/hr IV ASDIRECTED [facility] Last Admin: 03/04/19 10:37 Dose: 125 mls/hr Infusion: 03/04/19 10:16 Dose: 125 mls/hr Admin: 03/04/19 02:16 Dose: 125 mls/hr Infusion: 03/04/19 02:15 Dose: 125 mls/hr Admin: 03/03/19 18:15 Dose: 125 mls/hr Infusion: 03/03/19 18:15 Dose: 125 mls/hr Admin: 03/03/19 14:55 Dose: 125 mls/hr Morphine Sulfate (Morphine) 1 - 3 mg IVPUSH Q1H PRN PRN Reason: Pain Last Admin: 03/04/19 08:11 Dose: 3 mg Admin: 03/04/19 06:02 Dose: 3 mg Admin: 03/04/19 03:47 Dose: 3 mg Admin: 03/04/19 02:10 Dose: 2 mg Admin: 03/04/19 00:37 Dose: 2 mg Admin: 03/03/19 22:33 Dose: 2 mg Admin: 03/03/19 18:02 Dose: 2 mg Admin: 03/03/19 15:35 Dose: 3 mg Admin: 02/27/19 02:18 Dose: 2 mg Admin: 02/25/19 05:58 Dose: 2 mg Admin: 02/25/19 03:31 Dose: 2 mg Admin: 02/24/19 19:45 Dose: 2 mg Admin: 02/24/19 09:08 Dose: 2 mg Admin: 02/24/19 03:06 Dose: 2 mg Ondansetron HCl (Zofran) 4 mg IV Q8H PRN PRN Reason: Nausea/Vomiting Last Admin: 02/27/19 01:01 Dose: 4 mg Admin: 02/24/19 09:09 Dose: 4 mg Prednisolone Acetate (Pred Forte 1% Ophth Susp) 0 ml EYEBOTH DAILY [facility] Last Admin: 03/04/19 08:10 Dose: 1 ea Admin: 03/03/19 09:40 Dose: 1 ea Admin: 03/02/19 08:20 Dose: 1 ea Admin: 03/01/19 10:15 Dose: 1 ea Admin: 02/28/19 09:32 Dose: Not Given Admin: 02/28/19 07:35 Dose: 1 ea Admin: 02/27/19 10:39 Dose: 1 ea Admin: 02/26/19 08:48 Dose: Admin: 02/25/19 09:53 Dose: 1 drop Scopolamine (Transderm-Scop) 1.5 mg TRDERM Q72H PRN PRN Reason: Nausea - Assessment Assessment (Free Text/Narrative):: Good UOP. [place] rare bowel sound. - Plan Plan (Free Text/Narrative):: D/C [place]. Start Lovenox.
[2019-03-04] MEDS: Enoxaparin 40 MG/0.4 ML Syringe SUBCUT SCH (13:35)
--- NOTE | 2019-03-04 13:54 | PN ---
DATE OF SERVICE: 03/03/2019 The patient has been afebrile with stable vital signs. No flatus or bowel movement as of yet. Abdominal x-rays continue to show a large dilated small bowel loop, consistent with a continuous ileus. NG output has been moderate with around 300 mL out in the last 24 hours. Plan will be to continue the nasogastric suctioning for today. We will be rechecking the abdominal x-rays in the morning. We will add some Zithromax to the IV to try to augment GI tract motility, as well as a single Dulcolax suppository this morning, and recheck some labs in the morning as well. Lucius Guevara MD /[id number]
[2019-03-04] MEDS: 1: AA 5%/Calcium/D15W/Lytes 1,000 ML with MVI, Adult with Vitamin K 10 ML, Chromium/Copp IV SCH ×3 (16:14)
[2019-03-04] MEDS: Fat Emulsion 100 ML IV SCH (16:26)
[2019-03-05] MEDS: Morphine 2 MG/ML Syringe IVPUSH PRN ×5 (02:43→23:30)
[2019-03-05] MEDS: D5 1/2 NS w/ 20 mEq/L KCl 1,000 ML IV SCH (04:10)
[2019-03-05] MEDS: 1: AA 5%/Calcium/D15W/Lytes 1,000 ML with MVI, Adult with Vitamin K 10 ML, Chromium/Copp IV SCH ×6 (04:10→16:01)
[2019-03-05] MEDS: fentaNYL 100 MCG/2 ML SDV IVPUSH PRN ×3 (04:39→19:46)
[2019-03-05] MEDS: Enoxaparin 40 MG/0.4 ML Syringe SUBCUT SCH (09:01)
[2019-03-05] MEDS: prednisoLONE Acetate 1% Ophth Susp 5 ML Bottle EYEBOTH SCH (09:01)
[2019-03-05] MEDS: Fat Emulsion 100 ML IV SCH (16:00)
--- NOTE | 2019-03-05 21:09 | PCM.SURGPN ---
- General Info Date of Service: 03/05/19 Date of Surgery/Procedure: 03/03/19 POD#: 2 Post-Op Diagnosis: Small bowel obstruction Functional Status: Reports: Pain Controlled, Ambulating, Urinating, Incentive Spirometry. Denies: Tolerating Diet (NPO) - Review of Systems General: Reports: No Symptoms HEENT: Reports: No Symptoms Pulmonary: Reports: No Symptoms Cardiovascular: Reports: No Symptoms Gastrointestinal: Reports: No Symptoms, Other (NG inplace and functioning;). Denies: Flatus, Nausea, Vomiting Genitourinary: Reports: No Symptoms Musculoskeletal: Reports: No Symptoms Skin: Reports: No Symptoms Neurological: Reports: No Symptoms Psychiatric: Reports: No Symptoms - Patient Data Vitals - Most Recent: Last Vital Signs Temp 99.1 F 03/05/19 19:59 Pulse 90 03/05/19 19:59 Resp 16 03/05/19 19:59 BP 107/66 03/05/19 19:59 Pulse Ox 94 L 03/05/19 19:59 Weight - Most Recent: 165 lb 15.988 oz I&O - Last 24 Hours: Intake & Output 03/05/19 03/05/19 03/05/19 06:59 14:59 22:59 Intake Total 1226 1361 Output Total 1443 729 5843 Balance 176 -650 161 Lab Results Last 24 Hrs: Laboratory Results - last 24 hr 03/05/19 03/05/19 03/05/19 Range/Units 04:34 04:34 04:34 WBC 10.6 (4.5-11.0) K/uL RBC 3.88 L (4.30-5.90) M/uL Hgb 11.3 L (12.0-15.0) g/dL Hct 35.5 L (40.0-54.0) % MCV 92 (80-98) fL MCH 29 (27-31) pg MCHC 32 (32-36) % Plt Count 277 (150-400) K/uL Sodium 136 L (140-148) mmol/L Potassium 4.3 (3.6-5.2) mmol/L Chloride 100 (100-108) mmol/L Carbon Dioxide 29 (21-32) mmol/L Anion Gap 11.3 (5.0-14.0) mmol/L BUN 15 (7-18) mg/dL Creatinine 0.7 L (0.8-1.3) mg/dL Est Cr Clr Drug Dosing 88.54 mL/min Estimated GFR (MDRD) > 60 (>60) Glucose 126 H (74-106) mg/dL Calcium 8.7 (8.5-10.1) mg/dL Phosphorus 3.5 (2.5-4.9) mg/dL Magnesium 1.9 (1.8-2.4) mg/dL Jacques Results Last 24 Hrs: Microbiology 03/03/19 13:12 Gram Stain - Final Abdomen - Incision Wound Culture - Preliminary NO GROWTH AFTER 2 DAYS Anaerobic Culture - Preliminary NO GROWTH AFTER 2 DAYS Med Orders - Current: Current Medications Hydrocodone Bitart/Acetaminophen (Dorado 325-5 Mg) 1 - 2 tab PO Q4H PRN PRN Reason: Abdominal Pain Last Admin: 02/26/19 21:02 Dose: 2 tab Benazepril HCl (Lotensin) 10 mg PO DAILY [facility] Last Admin: 03/05/19 09:01 Dose: 10 mg Benzonatate (Tessalon Perles) 100 mg PO BID PRN PRN Reason: Cough Bisacodyl (Dulcolax) 10 mg RECTAL ASDIRECTED PRN PRN Reason: BOWEL MOVEMENT Calcium Carbonate/Glycine (Tums) 1,000 mg PO Q2H PRN PRN Reason: Indigestion Last Admin: 02/27/19 02:21 Dose: 1,000 mg Diphenhydramine HCl (Benadryl) 25 - 50 mg IVPUSH Q4H PRN PRN Reason: Itching Diphenhydramine HCl (Benadryl) 25 - 50 mg PO Q4H PRN PRN Reason: Itching Enoxaparin Sodium (Lovenox) 40 mg SUBCUT DAILY [facility] Last Admin: 03/05/19 09:01 Dose: 40 mg Fentanyl (Sublimaze) 50 mcg IVPUSH Q6H PRN PRN Reason: Pain (severe 7-10) Last Admin: 03/05/19 19:46 Dose: 50 mcg Fluticasone Propionate (Flonase) 0 gm NASBOTH BID PRN PRN Reason: Allergies Hydroxyzine HCl (Vistaril) 100 mg IM Q6H PRN PRN Reason: Nausea Last Admin: 03/04/19 02:09 Dose: 100 mg Promethazine HCl 12.5 mg/ (Sodium Chloride) 50.5 mls @ 200 mls/hr IV Q8H PRN PRN Reason: Nausea/Vomiting Azithromycin 250 mg/ Sodium (Chloride) 150 mls @ 150 mls/hr IV Q24H [facility] Last Admin: 03/05/19 10:06 Dose: 150 mls/hr Potassium Chloride/Dextrose/Sod Cl (D5 1/2 Ns W/ 20 Meq/L Kcl) 1,000 mls @ 25 mls/hr IV ASDIRECTED [facility] Last Admin: 03/05/19 04:10 Dose: 25 mls/hr Multivitamins/Minerals 10 ml/Chromium/Copper/Manganese/Seleni/Zn 1 ml/ Amino Ac/ Electrol/Dextrose/Calcium 1,011 mls @ 82 mls/hr IV .BY DURATION [facility] Last Admin: 03/05/19 16:01 Dose: 82 mls/hr Amino Ac/Electrol/Dextrose/Calcium (Clinimix E 5/15) 1,000 mls @ 82 mls/hr IV .BY DURATION [facility] Last Admin: 03/05/19 04:10 Dose: 82 mls/hr Fat Emulsion Intravenous (Intralipid 20%) 100 mls @ 10 mls/hr IV DAILY@1600 [facility] Last Admin: 03/05/19 16:00 Dose: 10 mls/hr Morphine Sulfate (Morphine) 1 - 3 mg IVPUSH Q1H PRN PRN Reason: Pain Last Admin: 03/05/19 16:39 Dose: 3 mg Ondansetron HCl (Zofran) 4 mg IV Q8H PRN PRN Reason: Nausea/Vomiting Last Admin: 02/27/19 01:01 Dose: 4 mg Prednisolone Acetate (Pred Forte 1% Ophth Susp) 0 ml EYEBOTH DAILY [facility] Last Admin: 03/05/19 09:01 Dose: 1 ea Scopolamine (Transderm-Scop) 1.5 mg TRDERM Q72H PRN PRN Reason: Nausea Discontinued Medications Alvimopan (Entereg) 12 mg PO ONETIME ONE Stop: 02/24/19 12:31 Last Admin: 02/24/19 12:52 Dose: 12 mg Bisacodyl (Dulcolax) 10 mg RECTAL ONETIME ONE Stop: 03/02/19 09:01 Last Admin: 03/02/19 09:19 Dose: 10 mg Bupivacaine HCl/Epinephrine Bitart (Marcaine 0.5%/Epinephrine 1:200,000) Confirm Administered Dose 50 ml .ROUTE .STK-MED ONE Stop: 02/24/19 11:44 Last Admin: 02/24/19 11:45 Dose: 40 ml Cefazolin Sodium (Ancef) Confirm Administered Dose 2 gm .ROUTE .STK-MED ONE Stop: 02/24/19 10:32 Cefoxitin Sodium (Mefoxin) Confirm Administered Dose 2 gm .ROUTE .STK-MED ONE Stop: 03/03/19 12:36 Dexamethasone (Dexamethasone) Confirm Administered Dose 4 mg .ROUTE .STK-MED ONE Stop: 02/24/19 09:36 Dexamethasone (Dexamethasone) Confirm Administered Dose 4 mg .ROUTE .STK-MED ONE Stop: 03/03/19 11:55 Diphenhydramine HCl (Benadryl) 50 mg IVPUSH ONETIME ONE Stop: 02/25/19 10:01 Fentanyl (Sublimaze) 10 - 30 mcg IVPUSH Q1H PRN PRN Reason: Pain (severe 7-10) Last Admin: 02/24/19 07:46 Dose: 25 mcg Fentanyl (Sublimaze) Confirm Administered Dose 250 mcg .ROUTE .STK-MED ONE Stop: 02/24/19 09:36 Fentanyl (Sublimaze) Confirm Administered Dose 250 mcg .ROUTE .STK-MED ONE Stop: 02/24/19 10:37 Fentanyl (Sublimaze) Confirm Administered Dose 250 mcg .ROUTE .STK-MED ONE Stop: 03/03/19 11:53 Fentanyl (Sublimaze) Confirm Administered Dose 250 mcg .ROUTE .STK-MED ONE Stop: 03/03/19 13:34 Glycopyrrolate (Robinul) Confirm Administered Dose 1 mg .ROUTE .STK-MED ONE Stop: 02/24/19 09:36 Glycopyrrolate (Robinul) Confirm Administered Dose 1 mg .ROUTE .STK-MED ONE Stop: 03/03/19 11:55 Hydralazine HCl (Apresoline) Confirm Administered Dose 20 mg .ROUTE .STK-MED ONE Stop: 03/03/19 13:43 Hydromorphone HCl (Dilaudid) 0.5 mg IVPUSH ONETIME ONE Stop: 02/24/19 01:32 Last Admin: 02/24/19 01:56 Dose: 0.5 mg Hydroxyzine HCl (Vistaril) 50 mg IM ONETIME ONE Stop: 03/03/19 14:10 Last Admin: 03/03/19 14:09 Dose: 50 mg Hydroxyzine HCl (Vistaril) Confirm Administered Dose 100 mg .ROUTE .STK-MED ONE Stop: 03/03/19 14:15 Last Admin: 03/03/19 16:28 Dose: Not Given Sodium Chloride (Normal Saline) 1,000 mls @ 250 mls/hr IV ASDIRECTED [facility] Last Admin: 02/24/19 01:56 Dose: 250 mls/hr Sodium Chloride (Normal Saline) 1,000 mls @ 125 mls/hr IV ASDIRECTED [facility] Last Admin: 02/25/19 07:08 Dose: 125 mls/hr Piperacillin/Tazobactam/ (Dextrose 3.375 gm/ Premix) 50 mls @ 100 mls/hr IV Q6H [facility] Last Admin: 02/26/19 08:42 Dose: 100 mls/hr Potassium Chloride/Dextrose/Sod Cl (D5 1/2 Ns W/ 20 Meq/L Kcl) 1,000 mls @ 125 mls/hr IV ASDIRECTED [facility] Last Admin: 02/26/19 06:28 Dose: 125 mls/hr Potassium Chloride/Dextrose/Sod Cl (D5 1/2 Ns W/ 20 Meq/L Kcl) 1,000 mls @ 50 mls/hr IV ASDIRECTED [facility] Last Infusion: 02/27/19 08:00 Dose: 125 mls/hr Potassium Chloride/Dextrose/Sod Cl (D5 1/2 Ns W/ 20 Meq/L Kcl) 1,000 mls @ 125 mls/hr IV ASDIRECTED [facility] Last Admin: 03/02/19 08:20 Dose: 125 mls/hr Potassium Chloride/Dextrose/Sod Cl (D5 1/2 Ns W/ 20 Meq/L Kcl) 1,000 mls @ 100 mls/hr IV ASDIRECTED [facility] Last Admin: 03/03/19 03:53 Dose: 100 mls/hr Lactated Ringer's (Ringers, Lactated) Confirm Administered Dose 1,000 mls @ as directed .ROUTE .[facility] ONE Stop: 03/03/19 12:26 Sodium Chloride (Normal Saline) Confirm Administered Dose 10 mls @ as directed .ROUTE .ST-MED ONE Stop: 03/03/19 12:36 Ketorolac Tromethamine (Toradol) Confirm Administered Dose 60 mg .ROUTE .ST- MED ONE Stop: 02/24/19 11:49 Meropenem (Merrem) Confirm Administered Dose 500 mg .ROUTE .STK-MED ONE Stop: 02/24/19 09:26 Last Admin: 02/24/19 11:12 Dose: 500 mg Methylprednisolone Sodium Succinate (Solu-Medrol) 40 mg IVPUSH Q4H [facility] Neostigmine Methylsulfate (Neostigmine) Confirm Administered Dose 5 mg .ROUTE .STK-MED ONE Stop: 02/24/19 09:36 Neostigmine Methylsulfate (Neostigmine) Confirm Administered Dose 5 mg .ROUTE .[facility]-MED ONE Stop: 03/03/19 11:55 Ondansetron HCl (Zofran) 4 mg IVPUSH ONETIME ONE Stop: 02/24/19 01:39 Last Admin: 02/24/19 01:56 Dose: 4 mg Ondansetron HCl (Zofran) Confirm Administered Dose 4 mg .ROUTE .ST-MED ONE Stop: 02/24/19 09:36 Ondansetron HCl (Zofran) Confirm Administered Dose 4 mg .ROUTE .ST-MED ONE Stop: 03/03/19 11:55 Propofol (Diprivan 20 Ml) Confirm Administered Dose 200 mg .ROUTE .ST-MED ONE Stop: 02/24/19 09:36 Propofol (Diprivan 20 Ml) Confirm Administered Dose 200 mg .ROUTE .ST-MED ONE Stop: 03/03/19 11:55 Rocuronium Lyman (Zemuron) Confirm Administered Dose 50 mg .ROUTE .STK-MED ONE Stop: 02/24/19 09:36 Rocuronium Lyman (Zemuron) Confirm Administered Dose 50 mg .ROUTE .STK-MED ONE Stop: 02/24/19 09:37 Rocuronium Lyman (Zemuron) Confirm Administered Dose 50 mg .ROUTE .STK-MED ONE Stop: 03/03/19 11:55 Succinylcholine Chloride (Quelicin) Confirm Administered Dose 200 mg .ROUTE .STK -MED ONE Stop: 02/24/19 09:36 Succinylcholine Chloride (Quelicin) Confirm Administered Dose 200 mg .ROUTE .STK -MED ONE Stop: 03/03/19 11:55 Sugammadex Sodium (Bridion) Confirm Administered Dose 200 mg .ROUTE .STK-MED ONE Stop: 03/03/19 13:30 - Exam Wound/Incisions: Healing Well, Dressing Dry and Intact General: Alert, Oriented, Cooperative, No Acute Distress Lungs: Clear to Auscultation, Normal Respiratory Effort Cardiovascular: Regular Rate, Regular Rhythm GI/Abdominal Exam: Abnormal Bowel Sounds (Hypoactive) Extremities: Normal Inspection Skin: Warm Neurological: No New Focal Deficit Psy/Mental Status: Alert, Normal Affect, Normal Mood - Problem List & Annotations (1) Small bowel obstruction SNOMED Code(s): 931413278 Code(s): K56.609 - UNSP INTESTNL OBST, UNSP TO PARTIAL VERSUS COMPLETE OBST Status: Acute Current Visit: Yes - Problem List Review Problem List Initiated/Reviewed/Updated: Yes - My Orders Last 24 Hours: Active Orders 24 hr Category Date Time Status Communication Order [RC] ROUTINE Care 03/05/19 06:42 Active BASIC METABOLIC PANEL,BMP [CHEM] DAILY Lab 03/06/19 05:11 Ordered BASIC METABOLIC PANEL,BMP [CHEM] DAILY Lab 03/07/19 05:11 Ordered BASIC METABOLIC PANEL,BMP [CHEM] DAILY Lab 03/08/19 05:11 Ordered BASIC METABOLIC PANEL,BMP [CHEM] DAILY Lab 03/09/19 05:11 Ordered CBC W/O DIFF,HEMOGRAM [HEME] DAILY Lab 03/06/19 05:11 Ordered CBC W/O DIFF,HEMOGRAM [HEME] DAILY Lab 03/07/19 05:11 Ordered CBC W/O DIFF,HEMOGRAM [HEME] DAILY Lab 03/08/19 05:11 Ordered CBC W/O DIFF,HEMOGRAM [HEME] DAILY Lab 03/09/19 05:11 Ordered GLUCOSE POC LAB TO COLLECT [POC] Q6H Lab 03/05/19 22:30 Ordered GLUCOSE POC LAB TO COLLECT [POC] Q6H Lab 03/06/19 04:30 Ordered GLUCOSE POC LAB TO COLLECT [POC] Q6H Lab 03/06/19 10:30 Ordered GLUCOSE POC LAB TO COLLECT [POC] Q6H Lab 03/06/19 16:30 Ordered GLUCOSE POC LAB TO COLLECT [POC] Q6H Lab 03/06/19 22:30 Ordered GLUCOSE POC LAB TO COLLECT [POC] Q6H Lab 03/07/19 04:30 Ordered GLUCOSE POC LAB TO COLLECT [POC] Q6H Lab 03/07/19 10:30 Ordered GLUCOSE POC LAB TO COLLECT [POC] Q6H Lab 03/07/19 16:30 Ordered GLUCOSE POC LAB TO COLLECT [POC] Q6H Lab 03/07/19 22:30 Ordered GLUCOSE POC LAB TO COLLECT [POC] Q6H Lab 03/08/19 04:30 Ordered GLUCOSE POC LAB TO COLLECT [POC] Q6H Lab 03/08/19 10:30 Ordered GLUCOSE POC LAB TO COLLECT [POC] Q6H Lab 03/08/19 16:30 Ordered GLUCOSE POC LAB TO COLLECT [POC] Q6H Lab 03/08/19 22:30 Ordered GLUCOSE POC LAB TO COLLECT [POC] Q6H Lab 03/09/19 04:30 Ordered GLUCOSE POC LAB TO COLLECT [POC] Q6H Lab 03/09/19 10:30 Ordered MAGNESIUM [CHEM] DAILY Lab 03/06/19 05:00 Ordered MAGNESIUM [CHEM] DAILY Lab 03/07/19 05:00 Ordered MAGNESIUM [CHEM] DAILY Lab 03/08/19 05:00 Ordered MAGNESIUM [CHEM] DAILY Lab 03/09/19 05:00 Ordered MAGNESIUM [CHEM] DAILY Lab 03/10/19 05:00 Ordered MAGNESIUM [CHEM] DAILY Lab 03/11/19 05:00 Ordered PHOSPHORUS [CHEM] DAILY Lab 03/06/19 05:00 Ordered PHOSPHORUS [CHEM] DAILY Lab 03/07/19 05:00 Ordered PHOSPHORUS [CHEM] DAILY Lab 03/08/19 05:00 Ordered PHOSPHORUS [CHEM] DAILY Lab 03/09/19 05:00 Ordered PHOSPHORUS [CHEM] DAILY Lab 03/10/19 05:00 Ordered PHOSPHORUS [CHEM] DAILY Lab 03/11/19 05:00 Ordered Medication Orders Hydrocodone Bitart/Acetaminophen (Dorado 325-5 Mg) 1 - 2 tab PO Q4H PRN PRN Reason: Abdominal Pain Last Admin: 02/26/19 21:02 Dose: 2 tab Admin: 02/26/19 14:51 Dose: 2 tab Admin: 02/26/19 02:39 Dose: 2 tab Admin: 02/25/19 21:41 Dose: 2 tab Admin: 02/25/19 15:41 Dose: 2 tab Admin: 02/25/19 09:46 Dose: 2 tab Benazepril HCl (Lotensin) 10 mg PO DAILY [facility] Last Admin: 03/05/19 09:01 Dose: 10 mg Admin: 03/04/19 08:10 Dose: 10 mg Admin: 03/03/19 09:40 Dose: 10 mg Admin: 03/02/19 08:19 Dose: 10 mg Admin: 03/01/19 10:15 Dose: 10 mg Admin: 02/28/19 09:32 Dose: Not Given Admin: 02/28/19 07:34 Dose: 10 mg Admin: 02/27/19 10:37 Dose: 10 mg Admin: 02/26/19 08:47 Dose: Admin: 02/25/19 09:55 Dose: 10 mg Benzonatate (Tessalon Perles) 100 mg PO BID PRN PRN Reason: Cough Bisacodyl (Dulcolax) 10 mg RECTAL ASDIRECTED PRN PRN Reason: BOWEL MOVEMENT Calcium Carbonate/Glycine (Tums) 1,000 mg PO Q2H PRN PRN Reason: Indigestion Last Admin: 02/27/19 02:21 Dose: 1,000 mg Diphenhydramine HCl (Benadryl) 25 - 50 mg IVPUSH Q4H PRN PRN Reason: Itching Diphenhydramine HCl (Benadryl) 25 - 50 mg PO Q4H PRN PRN Reason: Itching Enoxaparin Sodium (Lovenox) 40 mg SUBCUT DAILY [facility] Last Admin: 03/05/19 09:01 Dose: 40 mg Admin: 03/04/19 13:35 Dose: 40 mg Fentanyl (Sublimaze) 50 mcg IVPUSH Q6H PRN PRN Reason: Pain (severe 7-10) Last Admin: 03/05/19 19:46 Dose: 50 mcg Admin: 03/05/19 11:40 Dose: 50 mcg Admin: 03/05/19 04:39 Dose: 50 mcg Admin: 03/04/19 22:08 Dose: 50 mcg Admin: 03/04/19 16:07 Dose: 50 mcg Admin: 03/04/19 10:13 Dose: 50 mcg Admin: 03/04/19 03:18 Dose: 50 mcg Admin: 03/03/19 19:42 Dose: 50 mcg Fluticasone Propionate (Flonase) 0 gm NASBOTH BID PRN PRN Reason: Allergies Hydroxyzine HCl (Vistaril) 100 mg IM Q6H PRN PRN Reason: Nausea Last Admin: 03/04/19 02:09 Dose: 100 mg Admin: 02/24/19 12:21 Dose: 100 mg Promethazine HCl 12.5 mg/ (Sodium Chloride) 50.5 mls @ 200 mls/hr IV Q8H PRN PRN Reason: Nausea/Vomiting Azithromycin 250 mg/ Sodium (Chloride) 150 mls @ 150 mls/hr IV Q24H [facility] Last Admin: 03/05/19 10:06 Dose: 150 mls/hr Admin: 03/04/19 13:33 Dose: 150 mls/hr Admin: 03/03/19 09:27 Dose: 150 mls/hr Admin: 03/02/19 11:12 Dose: 150 mls/hr Potassium Chloride/Dextrose/Sod Cl (D5 1/2 Ns W/ 20 Meq/L Kcl) 1,000 mls @ 25 mls/hr IV ASDIRECTED [facility] Last Admin: 03/05/19 04:10 Dose: 25 mls/hr Infusion: 03/04/19 18:37 Dose: 125 mls/hr Admin: 03/04/19 10:37 Dose: 125 mls/hr Infusion: 03/04/19 10:16 Dose: 125 mls/hr Admin: 03/04/19 02:16 Dose: 125 mls/hr Infusion: 03/04/19 02:15 Dose: 125 mls/hr Admin: 03/03/19 18:15 Dose: 125 mls/hr Infusion: 03/03/19 18:15 Dose: 125 mls/hr Admin: 03/03/19 14:55 Dose: 125 mls/hr Multivitamins/Minerals 10 ml/Chromium/Copper/Manganese/Seleni/Zn 1 ml/ Amino Ac/ Electrol/Dextrose/Calcium 1,011 mls @ 82 mls/hr IV .BY DURATION [facility] Last Admin: 03/05/19 16:01 Dose: 82 mls/hr Infusion: 03/05/19 04:34 Dose: 82 mls/hr Admin: 03/04/19 16:14 Dose: 82 mls/hr Amino Ac/Electrol/Dextrose/Calcium (Clinimix E 10/17) 1,000 mls @ 82 mls/hr IV .BY D[facility]ATION [facility] Last Admin: 03/05/19 04:10 Dose: 82 mls/hr Fat Emulsion Intravenous (Intralipid 20%) 100 mls @ 10 mls/hr IV DAILY@1600 [facility] Last Admin: 03/05/19 16:00 Dose: 10 mls/hr Infusion: 03/05/19 02:26 Dose: 10 mls/hr Admin: 03/04/19 16:26 Dose: 10 mls/hr Morphine Sulfate (Morphine) 1 - 3 mg IVPUSH Q1H PRN PRN Reason: Pain Last Admin: 03/05/19 16:39 Dose: 3 mg Admin: 03/05/19 09:00 Dose: 2 mg Admin: 03/05/19 02:43 Dose: 2 mg Admin: 03/04/19 20:30 Dose: 2 mg Admin: 03/04/19 13:32 Dose: 2 mg Admin: 03/04/19 08:11 Dose: 3 mg Admin: 03/04/19 06:02 Dose: 3 mg Admin: 03/04/19 03:47 Dose: 3 mg Admin: 03/04/19 02:10 Dose: 2 mg Admin: 03/04/19 00:37 Dose: 2 mg Admin: 03/03/19 22:33 Dose: 2 mg Admin: 03/03/19 18:02 Dose: 2 mg Admin: 03/03/19 15:35 Dose: 3 mg Admin: 02/27/19 02:18 Dose: 2 mg Admin: 02/25/19 05:58 Dose: 2 mg Admin: 02/25/19 03:31 Dose: 2 mg Admin: 02/24/19 19:45 Dose: 2 mg Admin: 02/24/19 09:08 Dose: 2 mg Admin: 02/24/19 03:06 Dose: 2 mg Ondansetron HCl (Zofran) 4 mg IV Q8H PRN PRN Reason: Nausea/Vomiting Last Admin: 02/27/19 01:01 Dose: 4 mg Admin: 02/24/19 09:09 Dose: 4 mg Prednisolone Acetate (Pred Forte 1% Ophth Susp) 0 ml EYEBOTH DAILY [facility] Last Admin: 03/05/19 09:01 Dose: 1 ea Admin: 03/04/19 08:10 Dose: 1 ea Admin: 03/03/19 09:40 Dose: 1 ea Admin: 03/02/19 08:20 Dose: 1 ea Admin: 03/01/19 10:15 Dose: 1 ea Admin: 02/28/19 09:32 Dose: Not Given Admin: 02/28/19 07:35 Dose: 1 ea Admin: 02/27/19 10:39 Dose: 1 ea Admin: 02/26/19 08:48 Dose: Admin: 02/25/19 09:53 Dose: 1 drop Scopolamine (Transderm-Scop) 1.5 mg TRDERM Q72H PRN PRN Reason: Nausea - Assessment Assessment (Free Text/Narrative):: Waiting for GI recovery - Plan Plan (Free Text/Narrative):: No change. Continue TPN.
[2019-03-06] MEDS: 1: AA 5%/Calcium/D15W/Lytes 1,000 ML with MVI, Adult with Vitamin K 10 ML, Chromium/Copp IV SCH ×6 (04:12→16:15)
[2019-03-06] MEDS: fentaNYL 100 MCG/2 ML SDV IVPUSH PRN ×2 (04:20→20:43)
[2019-03-06] MEDS: Morphine 2 MG/ML Syringe IVPUSH PRN ×4 (08:17→17:56)
[2019-03-06] MEDS: Enoxaparin 40 MG/0.4 ML Syringe SUBCUT SCH (08:39)
[2019-03-06] MEDS: prednisoLONE Acetate 1% Ophth Susp 5 ML Bottle EYEBOTH SCH (08:39)
--- NOTE | 2019-03-06 10:56 | PCM.SURGPN ---
- General Info Date of Service: 03/06/19 Date of Surgery/Procedure: 03/03/19 POD#: 3 Post-Op Diagnosis: Small bowel obstruction Functional Status: Reports: Pain Controlled, Ambulating, Urinating. Denies: Tolerating Diet - Review of Systems General: Reports: No Symptoms HEENT: Reports: No Symptoms Pulmonary: Reports: No Symptoms Cardiovascular: Reports: No Symptoms Gastrointestinal: Denies: Flatus Genitourinary: Reports: No Symptoms Musculoskeletal: Reports: No Symptoms Skin: Reports: No Symptoms Neurological: Reports: No Symptoms Psychiatric: Reports: No Symptoms - Patient Data Vitals - Most Recent: Last Vital Signs Temp 98.6 F 03/06/19 10:33 Pulse 72 03/06/19 10:33 Resp 18 03/06/19 10:33 BP 116/57 L 03/06/19 10:33 Pulse Ox 95 03/06/19 10:33 Weight - Most Recent: 158 lb 3.2 oz I&O - Last 24 Hours: Intake & Output 03/05/19 03/06/19 03/06/19 22:59 06:59 14:59 Intake Total 1361 2345 150 Output Total 1450 1000 400 Balance -89 1345 -250 Lab Results Last 24 Hrs: Laboratory Results - last 24 hr 03/06/19 03/06/19 03/06/19 Range/Units 04:05 04:05 04:05 WBC 7.3 (4.5-11.0) K/uL RBC 3.58 L (4.30-5.90) M/uL Hgb 10.4 L (12.0-15.0) g/dL Hct 33.0 L (40.0-54.0) % MCV 92 (80-98) fL MCH 29 (27-31) pg MCHC 32 (32-36) % Plt Count 248 (150-400) K/uL Sodium 137 L (140-148) mmol/L Potassium 4.2 (3.6-5.2) mmol/L Chloride 101 (100-108) mmol/L Carbon Dioxide 32 (21-32) mmol/L Anion Gap 8.2 (5.0-14.0) mmol/L BUN 19 H (7-18) mg/dL Creatinine 0.7 L (0.8-1.3) mg/dL Est Cr Clr Drug Dosing 88.54 mL/min Estimated GFR (MDRD) > 60 (>60) Glucose 120 H (74-106) mg/dL Calcium 8.8 (8.5-10.1) mg/dL Phosphorus 4.1 (2.5-4.9) mg/dL Magnesium 2.0 (1.8-2.4) mg/dL Jacques Results Last 24 Hrs: Microbiology 03/03/19 13:12 Gram Stain - Final Abdomen - Incision Wound Culture - Final NO GROWTH AFTER 3 DAYS Anaerobic Culture - Final Gram Positive Rods Med Orders - Current: Current Medications Hydrocodone Bitart/Acetaminophen ([place] 325-5 Mg) 1 - 2 tab PO Q4H PRN PRN Reason: Abdominal Pain Last Admin: 02/26/19 21:02 Dose: 2 tab Benazepril HCl (Lotensin) 10 mg PO DAILY [facility] Last Admin: 03/06/19 08:45 Dose: 10 mg Benzonatate (Tessalon Perles) 100 mg PO BID PRN PRN Reason: Cough Bisacodyl (Dulcolax) 10 mg RECTAL ASDIRECTED PRN PRN Reason: BOWEL MOVEMENT Calcium Carbonate/Glycine (Tums) 1,000 mg PO Q2H PRN PRN Reason: Indigestion Last Admin: 02/27/19 02:21 Dose: 1,000 mg Diphenhydramine HCl (Benadryl) 25 - 50 mg IVPUSH Q4H PRN PRN Reason: Itching Diphenhydramine HCl (Benadryl) 25 - 50 mg PO Q4H PRN PRN Reason: Itching Enoxaparin Sodium (Lovenox) 40 mg SUBCUT DAILY [facility] Last Admin: 03/06/19 08:39 Dose: 40 mg Fentanyl (Sublimaze) 50 mcg IVPUSH Q6H PRN PRN Reason: Pain (severe 7-10) Last Admin: 03/06/19 04:20 Dose: 50 mcg Fluticasone Propionate (Flonase) 0 gm NASBOTH BID PRN PRN Reason: Allergies Hydroxyzine HCl (Vistaril) 100 mg IM Q6H PRN PRN Reason: Nausea Last Admin: 03/04/19 02:09 Dose: 100 mg Promethazine HCl 12.5 mg/ (Sodium Chloride) 50.5 mls @ 200 mls/hr IV Q8H PRN PRN Reason: Nausea/Vomiting Azithromycin 250 mg/ Sodium (Chloride) 150 mls @ 150 mls/hr IV Q24H [facility] Last Admin: 03/06/19 10:08 Dose: 150 mls/hr Potassium Chloride/Dextrose/Sod Cl (D5 1/2 Ns W/ 20 Meq/L Kcl) 1,000 mls @ 25 mls/hr IV ASDIRECTED [facility] Last Admin: 03/05/19 04:10 Dose: 25 mls/hr Multivitamins/Minerals 10 ml/Chromium/Copper/Manganese/Seleni/Zn 1 ml/ Amino Ac/ Electrol/Dextrose/Calcium 1,011 mls @ 82 mls/hr IV .BY DURATION [facility] Last Admin: 03/05/19 16:01 Dose: 82 mls/hr Amino Ac/Electrol/Dextrose/Calcium (Clinimix E 5/15) 1,000 mls @ 82 mls/hr IV .BY DURATION [facility] Last Admin: 03/06/19 04:12 Dose: 82 mls/hr Fat Emulsion Intravenous (Intralipid 20%) 100 mls @ 10 mls/hr IV DAILY@1600 [facility] Last Admin: 03/05/19 16:00 Dose: 10 mls/hr Morphine Sulfate (Morphine) 1 - 3 mg IVPUSH Q1H PRN PRN Reason: Pain Last Admin: 03/06/19 08:17 Dose: 2 mg Ondansetron HCl (Zofran) 4 mg IV Q8H PRN PRN Reason: Nausea/Vomiting Last Admin: 02/27/19 01:01 Dose: 4 mg Prednisolone Acetate (Pred Forte 1% Ophth Susp) 0 ml EYEBOTH DAILY [facility] Last Admin: 03/06/19 08:39 Dose: 1 ea Scopolamine (Transderm-Scop) 1.5 mg TRDERM Q72H PRN PRN Reason: Nausea Discontinued Medications Alvimopan (Entereg) 12 mg PO ONETIME ONE Stop: 02/24/19 12:31 Last Admin: 02/24/19 12:52 Dose: 12 mg Bisacodyl (Dulcolax) 10 mg RECTAL ONETIME ONE Stop: 03/02/19 09:01 Last Admin: 03/02/19 09:19 Dose: 10 mg Bupivacaine HCl/Epinephrine Bitart (Marcaine 0.5%/Epinephrine 1:200,000) Confirm Administered Dose 50 ml .ROUTE .STK-MED ONE Stop: 02/24/19 11:44 Last Admin: 02/24/19 11:45 Dose: 40 ml Cefazolin Sodium (Ancef) Confirm Administered Dose 2 gm .ROUTE .STK-MED ONE Stop: 02/24/19 10:32 Cefoxitin Sodium (Mefoxin) Confirm Administered Dose 2 gm .ROUTE .STK-MED ONE Stop: 03/03/19 12:36 Dexamethasone (Dexamethasone) Confirm Administered Dose 4 mg .ROUTE .STK-MED ONE Stop: 02/24/19 09:36 Dexamethasone (Dexamethasone) Confirm Administered Dose 4 mg .ROUTE .STK-MED ONE Stop: 03/03/19 11:55 Diphenhydramine HCl (Benadryl) 50 mg IVPUSH ONETIME ONE Stop: 02/25/19 10:01 Fentanyl (Sublimaze) 10 - 30 mcg IVPUSH Q1H PRN PRN Reason: Pain (severe 7-10) Last Admin: 02/24/19 07:46 Dose: 25 mcg Fentanyl (Sublimaze) Confirm Administered Dose 250 mcg .ROUTE .STK-MED ONE Stop: 02/24/19 09:36 Fentanyl (Sublimaze) Confirm Administered Dose 250 mcg .ROUTE .STK-MED ONE Stop: 02/24/19 10:37 Fentanyl (Sublimaze) Confirm Administered Dose 250 mcg .ROUTE .STK-MED ONE Stop: 03/03/19 11:53 Fentanyl (Sublimaze) Confirm Administered Dose 250 mcg .ROUTE .STK-MED ONE Stop: 03/03/19 13:34 Glycopyrrolate (Robinul) Confirm Administered Dose 1 mg .ROUTE .STK-MED ONE Stop: 02/24/19 09:36 Glycopyrrolate (Robinul) Confirm Administered Dose 1 mg .ROUTE .STK-MED ONE Stop: 03/03/19 11:55 Hydralazine HCl (Apresoline) Confirm Administered Dose 20 mg .ROUTE .STK-MED ONE Stop: 03/03/19 13:43 Hydromorphone HCl (Dilaudid) 0.5 mg IVPUSH ONETIME ONE Stop: 02/24/19 01:32 Last Admin: 02/24/19 01:56 Dose: 0.5 mg Hydroxyzine HCl (Vistaril) 50 mg IM ONETIME ONE Stop: 03/03/19 14:10 Last Admin: 03/03/19 14:09 Dose: 50 mg Hydroxyzine HCl (Vistaril) Confirm Administered Dose 100 mg .ROUTE .STK-MED ONE Stop: 03/03/19 14:15 Last Admin: 03/03/19 16:28 Dose: Not Given Sodium Chloride (Normal Saline) 1,000 mls @ 250 mls/hr IV ASDIRECTED [facility] Last Admin: 02/24/19 01:56 Dose: 250 mls/hr Sodium Chloride (Normal Saline) 1,000 mls @ 125 mls/hr IV ASDIRECTED [facility] Last Admin: 02/25/19 07:08 Dose: 125 mls/hr Piperacillin/Tazobactam/ (Dextrose 3.375 gm/ Premix) 50 mls @ 100 mls/hr IV Q6H [facility] Last Admin: 02/26/19 08:42 Dose: 100 mls/hr Potassium Chloride/Dextrose/Sod Cl (D5 1/2 Ns W/ 20 Meq/L Kcl) 1,000 mls @ 125 mls/hr IV ASDIRECTED [facility] Last Admin: 02/26/19 06:28 Dose: 125 mls/hr Potassium Chloride/Dextrose/Sod Cl (D5 1/2 Ns W/ 20 Meq/L Kcl) 1,000 mls @ 50 mls/hr IV ASDIRECTED [facility] Last Infusion: 02/27/19 08:00 Dose: 125 mls/hr Potassium Chloride/Dextrose/Sod Cl (D5 1/2 Ns W/ 20 Meq/L Kcl) 1,000 mls @ 125 mls/hr IV ASDIRECTED [facility] Last Admin: 03/02/19 08:20 Dose: 125 mls/hr Potassium Chloride/Dextrose/Sod Cl (D5 1/2 Ns W/ 20 Meq/L Kcl) 1,000 mls @ 100 mls/hr IV ASDIRECTED [facility] Last Admin: 03/03/19 03:53 Dose: 100 mls/hr Lactated Ringer's (Ringers, Lactated) Confirm Administered Dose 1,000 mls @ as directed .ROUTE .STK-MED ONE Stop: 03/03/19 12:26 Sodium Chloride (Normal Saline) Confirm Administered Dose 10 mls @ as directed .ROUTE .ST-MED ONE Stop: 03/03/19 12:36 Ketorolac Tromethamine (Toradol) Confirm Administered Dose 60 mg .ROUTE .STK- MED ONE Stop: 02/24/19 11:49 Meropenem (Merrem) Confirm Administered Dose 500 mg .ROUTE .STK-MED ONE Stop: 02/24/19 09:26 Last Admin: 02/24/19 11:12 Dose: 500 mg Methylprednisolone Sodium Succinate (Solu-Medrol) 40 mg IVPUSH Q4H [facility] Neostigmine Methylsulfate (Neostigmine) Confirm Administered Dose 5 mg .ROUTE .STK-MED ONE Stop: 02/24/19 09:36 Neostigmine Methylsulfate (Neostigmine) Confirm Administered Dose 5 mg .ROUTE .K-MED ONE Stop: 03/03/19 11:55 Ondansetron HCl (Zofran) 4 mg IVPUSH ONETIME ONE Stop: 02/24/19 01:39 Last Admin: 02/24/19 01:56 Dose: 4 mg Ondansetron HCl (Zofran) Confirm Administered Dose 4 mg .ROUTE .STK-MED ONE Stop: 02/24/19 09:36 Ondansetron HCl (Zofran) Confirm Administered Dose 4 mg .ROUTE .STK-MED ONE Stop: 03/03/19 11:55 Propofol (Diprivan 20 Ml) Confirm Administered Dose 200 mg .ROUTE .STK-MED ONE Stop: 02/24/19 09:36 Propofol (Diprivan 20 Ml) Confirm Administered Dose 200 mg .ROUTE .STK-MED ONE Stop: 03/03/19 11:55 Rocuronium [place] (Zemuron) Confirm Administered Dose 50 mg .ROUTE .STK-MED ONE Stop: 02/24/19 09:36 Rocuronium [place] (Zemuron) Confirm Administered Dose 50 mg .ROUTE .STK-MED ONE Stop: 02/24/19 09:37 Rocuronium [place] (Zemuron) Confirm Administered Dose 50 mg .ROUTE .STK-MED ONE Stop: 03/03/19 11:55 Succinylcholine Chloride (Quelicin) Confirm Administered Dose 200 mg .ROUTE .STK -MED ONE Stop: 02/24/19 09:36 Succinylcholine Chloride (Quelicin) Confirm Administered Dose 200 mg .ROUTE .STK -MED ONE Stop: 03/03/19 11:55 Sugammadex Sodium (Bridion) Confirm Administered Dose 200 mg .ROUTE .STK-MED ONE Stop: 03/03/19 13:30 - Exam Wound/Incisions: Healing Well GI/Abdominal Exam: Normal Bowel Sounds. No: Distended - Problem List & Annotations (1) Small bowel obstruction SNOMED Code(s): 879422435 Code(s): K56.609 - UNSP INTESTNL OBST, UNSP TO PARTIAL VERSUS COMPLETE OBST Status: Acute Current Visit: Yes - Problem List Review Problem List Initiated/Reviewed/Updated: Yes - My Orders Last 24 Hours: Active Orders 24 hr Category Date Time Status May Shower [RC] DAILY Care 03/06/19 07:36 Active Abdomen 2V AP Upright Decub [CR] Routine Exams 03/07/19 05:00 Ordered BASIC METABOLIC PANEL,BMP [CHEM] DAILY Lab 03/07/19 05:11 Ordered BASIC METABOLIC PANEL,BMP [CHEM] DAILY Lab 03/08/19 05:11 Ordered BASIC METABOLIC PANEL,BMP [CHEM] DAILY Lab 03/09/19 05:11 Ordered CBC W/O DIFF,HEMOGRAM [HEME] DAILY Lab 03/07/19 05:11 Ordered CBC W/O DIFF,HEMOGRAM [HEME] DAILY Lab 03/08/19 05:11 Ordered CBC W/O DIFF,HEMOGRAM [HEME] DAILY Lab 03/09/19 05:11 Ordered GLUCOSE POC LAB TO COLLECT [POC] Q6H Lab 03/06/19 16:30 Ordered GLUCOSE POC LAB TO COLLECT [POC] Q6H Lab 03/06/19 22:30 Ordered GLUCOSE POC LAB TO COLLECT [POC] Q6H Lab 03/07/19 04:30 Ordered GLUCOSE POC LAB TO COLLECT [POC] Q6H Lab 03/07/19 10:30 Ordered GLUCOSE POC LAB TO COLLECT [POC] Q6H Lab 03/07/19 16:30 Ordered GLUCOSE POC LAB TO COLLECT [POC] Q6H Lab 03/07/19 22:30 Ordered GLUCOSE POC LAB TO COLLECT [POC] Q6H Lab 03/08/19 04:30 Ordered GLUCOSE POC LAB TO COLLECT [POC] Q6H Lab 03/08/19 10:30 Ordered GLUCOSE POC LAB TO COLLECT [POC] Q6H Lab 03/08/19 16:30 Ordered GLUCOSE POC LAB TO COLLECT [POC] Q6H Lab 03/08/19 22:30 Ordered GLUCOSE POC LAB TO COLLECT [POC] Q6H Lab 03/09/19 04:30 Ordered GLUCOSE POC LAB TO COLLECT [POC] Q6H Lab 03/09/19 10:30 Ordered MAGNESIUM [CHEM] DAILY Lab 03/07/19 05:00 Ordered MAGNESIUM [CHEM] DAILY Lab 03/08/19 05:00 Ordered MAGNESIUM [CHEM] DAILY Lab 03/09/19 05:00 Ordered MAGNESIUM [CHEM] DAILY Lab 03/10/19 05:00 Ordered MAGNESIUM [CHEM] DAILY Lab 03/11/19 05:00 Ordered PHOSPHORUS [CHEM] DAILY Lab 03/07/19 05:00 Ordered PHOSPHORUS [CHEM] DAILY Lab 03/08/19 05:00 Ordered PHOSPHORUS [CHEM] DAILY Lab 03/09/19 05:00 Ordered PHOSPHORUS [CHEM] DAILY Lab 03/10/19 05:00 Ordered PHOSPHORUS [CHEM] DAILY Lab 03/11/19 05:00 Ordered Medication Orders Hydrocodone Bitart/Acetaminophen ([place] 325-5 Mg) 1 - 2 tab PO Q4H PRN PRN Reason: Abdominal Pain Last Admin: 02/26/19 21:02 Dose: 2 tab Admin: 02/26/19 14:51 Dose: 2 tab Admin: 02/26/19 02:39 Dose: 2 tab Admin: 02/25/19 21:41 Dose: 2 tab Admin: 02/25/19 15:41 Dose: 2 tab Admin: 02/25/19 09:46 Dose: 2 tab Benazepril HCl (Lotensin) 10 mg PO DAILY [facility] Last Admin: 03/06/19 08:45 Dose: 10 mg Admin: 03/05/19 09:01 Dose: 10 mg Admin: 03/04/19 08:10 Dose: 10 mg Admin: 03/03/19 09:40 Dose: 10 mg Admin: 03/02/19 08:19 Dose: 10 mg Admin: 03/01/19 10:15 Dose: 10 mg Admin: 02/28/19 09:32 Dose: Not Given Admin: 02/28/19 07:34 Dose: 10 mg Admin: 02/27/19 10:37 Dose: 10 mg Admin: 02/26/19 08:47 Dose: Admin: 02/25/19 09:55 Dose: 10 mg Benzonatate (Tessalon Perles) 100 mg PO BID PRN PRN Reason: Cough Bisacodyl (Dulcolax) 10 mg RECTAL ASDIRECTED PRN PRN Reason: BOWEL MOVEMENT Calcium Carbonate/Glycine (Tums) 1,000 mg PO Q2H PRN PRN Reason: Indigestion Last Admin: 02/27/19 02:21 Dose: 1,000 mg Diphenhydramine HCl (Benadryl) 25 - 50 mg IVPUSH Q4H PRN PRN Reason: Itching Diphenhydramine HCl (Benadryl) 25 - 50 mg PO Q4H PRN PRN Reason: Itching Enoxaparin Sodium (Lovenox) 40 mg SUBCUT DAILY [facility] Last Admin: 03/06/19 08:39 Dose: 40 mg Admin: 03/05/19 09:01 Dose: 40 mg Admin: 03/04/19 13:35 Dose: 40 mg Fentanyl (Sublimaze) 50 mcg IVPUSH Q6H PRN PRN Reason: Pain (severe 7-10) Last Admin: 03/06/19 04:20 Dose: 50 mcg Admin: 03/05/19 19:46 Dose: 50 mcg Admin: 03/05/19 11:40 Dose: 50 mcg Admin: 03/05/19 04:39 Dose: 50 mcg Admin: 03/04/19 22:08 Dose: 50 mcg Admin: 03/04/19 16:07 Dose: 50 mcg Admin: 03/04/19 10:13 Dose: 50 mcg Admin: 03/04/19 03:18 Dose: 50 mcg Admin: 03/03/19 19:42 Dose: 50 mcg Fluticasone Propionate (Flonase) 0 gm NASBOTH BID PRN PRN Reason: Allergies Hydroxyzine HCl (Vistaril) 100 mg IM Q6H PRN PRN Reason: Nausea Last Admin: 03/04/19 02:09 Dose: 100 mg Admin: 02/24/19 12:21 Dose: 100 mg Promethazine HCl 12.5 mg/ (Sodium Chloride) 50.5 mls @ 200 mls/hr IV Q8H PRN PRN Reason: Nausea/Vomiting Azithromycin 250 mg/ Sodium (Chloride) 150 mls @ 150 mls/hr IV Q24H [facility] Last Admin: 03/06/19 10:08 Dose: 150 mls/hr Admin: 03/05/19 10:06 Dose: 150 mls/hr Admin: 03/04/19 13:33 Dose: 150 mls/hr Admin: 03/03/19 09:27 Dose: 150 mls/hr Admin: 03/02/19 11:12 Dose: 150 mls/hr Potassium Chloride/Dextrose/Sod Cl (D5 1/2 Ns W/ 20 Meq/L Kcl) 1,000 mls @ 25 mls/hr IV ASDIRECTED [facility] Last Admin: 03/05/19 04:10 Dose: 25 mls/hr Infusion: 03/04/19 18:37 Dose: 125 mls/hr Admin: 03/04/19 10:37 Dose: 125 mls/hr Infusion: 03/04/19 10:16 Dose: 125 mls/hr Admin: 03/04/19 02:16 Dose: 125 mls/hr Infusion: 03/04/19 02:15 Dose: 125 mls/hr Admin: 03/03/19 18:15 Dose: 125 mls/hr Infusion: 03/03/19 18:15 Dose: 125 mls/hr Admin: 03/03/19 14:55 Dose: 125 mls/hr Multivitamins/Minerals 10 ml/Chromium/Copper/Manganese/Seleni/Zn 1 ml/ Amino Ac/ Electrol/Dextrose/Calcium 1,011 mls @ 82 mls/hr IV .BY DURATION [facility] Last Admin: 03/05/19 16:01 Dose: 82 mls/hr Infusion: 03/05/19 04:34 Dose: 82 mls/hr Admin: 03/04/19 16:14 Dose: 82 mls/hr Amino Ac/Electrol/Dextrose/Calcium (Clinimix E 10/17) 1,000 mls @ 82 mls/hr IV .BY DURATION [facility] Last Admin: 03/06/19 04:12 Dose: 82 mls/hr Infusion: 03/05/19 16:22 Dose: 82 mls/hr Admin: 03/05/19 04:10 Dose: 82 mls/hr Fat Emulsion Intravenous (Intralipid 20%) 100 mls @ 10 mls/hr IV DAILY@1600 [facility] Last Admin: 03/05/19 16:00 Dose: 10 mls/hr Infusion: 03/05/19 02:26 Dose: 10 mls/hr Admin: 03/04/19 16:26 Dose: 10 mls/hr Morphine Sulfate (Morphine) 1 - 3 mg IVPUSH Q1H PRN PRN Reason: Pain Last Admin: 03/06/19 08:17 Dose: 2 mg Admin: 03/05/19 23:30 Dose: 2 mg Admin: 03/05/19 22:01 Dose: 2 mg Admin: 03/05/19 16:39 Dose: 3 mg Admin: 03/05/19 09:00 Dose: 2 mg Admin: 03/05/19 02:43 Dose: 2 mg Admin: 03/04/19 20:30 Dose: 2 mg Admin: 03/04/19 13:32 Dose: 2 mg Admin: 03/04/19 08:11 Dose: 3 mg Admin: 03/04/19 06:02 Dose: 3 mg Admin: 03/04/19 03:47 Dose: 3 mg Admin: 03/04/19 02:10 Dose: 2 mg Admin: 03/04/19 00:37 Dose: 2 mg Admin: 03/03/19 22:33 Dose: 2 mg Admin: 03/03/19 18:02 Dose: 2 mg Admin: 03/03/19 15:35 Dose: 3 mg Admin: 02/27/19 02:18 Dose: 2 mg Admin: 02/25/19 05:58 Dose: 2 mg Admin: 02/25/19 03:31 Dose: 2 mg Admin: 02/24/19 19:45 Dose: 2 mg Admin: 02/24/19 09:08 Dose: 2 mg Admin: 02/24/19 03:06 Dose: 2 mg Ondansetron HCl (Zofran) 4 mg IV Q8H PRN PRN Reason: Nausea/Vomiting Last Admin: 02/27/19 01:01 Dose: 4 mg Admin: 02/24/19 09:09 Dose: 4 mg Prednisolone Acetate (Pred Forte 1% Ophth Susp) 0 ml EYEBOTH DAILY [facility] Last Admin: 03/06/19 08:39 Dose: 1 ea Admin: 03/05/19 09:01 Dose: 1 ea Admin: 03/04/19 08:10 Dose: 1 ea Admin: 03/03/19 09:40 Dose: 1 ea Admin: 03/02/19 08:20 Dose: 1 ea Admin: 03/01/19 10:15 Dose: 1 ea Admin: 02/28/19 09:32 Dose: Not Given Admin: 02/28/19 07:35 Dose: 1 ea Admin: 02/27/19 10:39 Dose: 1 ea Admin: 02/26/19 08:48 Dose: Admin: 02/25/19 09:53 Dose: 1 drop Scopolamine (Transderm-Scop) 1.5 mg TRDERM Q72H PRN PRN Reason: Nausea - Assessment Assessment (Free Text/Narrative):: Waiting for GI recovery. - Plan Plan (Free Text/Narrative):: Dr. Durbin has seen and will assume care for now.
[2019-03-06] MEDS: D5 1/2 NS w/ 20 mEq/L KCl 1,000 ML IV SCH (16:04)
[2019-03-06] MEDS: Fat Emulsion 100 ML IV SCH (16:06)
[2019-03-07] MEDS: fentaNYL 100 MCG/2 ML SDV IVPUSH PRN ×3 (03:44→23:36)
[2019-03-07] MEDS: 1: AA 5%/Calcium/D15W/Lytes 1,000 ML with MVI, Adult with Vitamin K 10 ML, Chromium/Copp IV SCH ×9 (04:21→16:37)
--- NOTE | 2019-03-07 04:53 | CRLCR ---
INDICATION: Ileus TECHNIQUE: Abdomen 2 view. COMPARISON: 03/03/2019 FINDINGS: Bowel: Enteric tube tip within the distal body of the stomach. Dilated small bowel loops with air-fluid levels consistent with ileus versus small bowel obstruction. Paucity of bowel gas in the large bowel. Soft tissues: Small amount of air under both hemidiaphragms. No sign of soft tissue mass. No suspicious calcifications. Bones: Unremarkable for age. IMPRESSION: Dilated small bowel loops with air-fluid levels consistent with ileus versus small bowel obstruction. Small bowel air under both hemidiaphragms. Dictated by Angel Pettit MD @ 03/07/2019 4:51:00 AM Dictated by: Angel Pettit MD @ 03/07/2019 04:51:07 (Electronically Signed)
[2019-03-07] MEDS ORDERED: Central Total Parenteral Nutrition Bag SCH (08:00)
[2019-03-07] MEDS: Enoxaparin 40 MG/0.4 ML Syringe SUBCUT SCH (08:16)
[2019-03-07] MEDS: prednisoLONE Acetate 1% Ophth Susp 5 ML Bottle EYEBOTH SCH (08:20)
--- NOTE | 2019-03-07 10:59 | PN ---
DATE OF SERVICE: 03/07/2019 SUBJECTIVE: The patient is improving. He is passing gas. OBJECTIVE: VITAL SIGNS: Vital signs are stable. CARDIOVASCULAR: Regular rhythm and rate. RESPIRATORY: Lungs are clear to consultation bilaterally. ABDOMEN: Mildly distended. No rebound. No guarding. Drain output was serosanguineous. ASSESSMENT: Small bowel resection. PLAN: Continue to await GI function. Same TPN today. Johnnie Durbin MD /[id number]
[2019-03-07] MEDS: Morphine 2 MG/ML Syringe IVPUSH PRN ×2 (11:15→14:08)
[2019-03-07] MEDS: Fat Emulsion 100 ML IV SCH (16:40)
[2019-03-08] MEDS: 1: AA 5%/Calcium/D15W/Lytes 1,000 ML with MVI, Adult with Vitamin K 10 ML, Chromium/Copp IV SCH ×9 (05:07→17:42)
[2019-03-08] MEDS ORDERED: Sodium Phosphate,Monobasic/Sodium Phosphate,Dibasic Enema 133 ML Bottle RECTAL ONE (08:59)
[2019-03-08] MEDS ORDERED: Ibuprofen Susp 100 MG/5 ML 5 ML UD Cup PO ONE (09:01)
[2019-03-08] MEDS: Benazepril 10 MG Tab PO SCH (09:53)
[2019-03-08] MEDS: Enoxaparin 40 MG/0.4 ML Syringe SUBCUT SCH (09:54)
[2019-03-08] MEDS: prednisoLONE Acetate 1% Ophth Susp 5 ML Bottle EYEBOTH SCH (09:56)
--- NOTE | 2019-03-08 10:31 | PN ---
DATE OF SERVICE: 03/08/2019 SUBJECTIVE: The patient is better, passing gas multiple times. OBJECTIVE: VITAL SIGNS: Stable. CARDIOVASCULAR: Regular rhythm and rate. RESPIRATORY: Lungs are clear to auscultation bilaterally. ABDOMEN: Bowel sounds positive. PLAN: We will continue to advance diet today. Continue the TPN. We will start him with sips of clear liquids. Continue antibiotics at this time. Johnnie Durbin MD /[id number]
[2019-03-08] MEDS: Lactulose Soln 10 GM/15 ML 15 ML UD Cup PO SCH ×2 (12:15→21:39)
[2019-03-08] MEDS: Fat Emulsion 100 ML IV SCH (16:58)
[2019-03-08] MEDS: fentaNYL 100 MCG/2 ML SDV IVPUSH PRN (23:37)
[2019-03-09] MEDS: 1: AA 5%/Calcium/D15W/Lytes 1,000 ML with MVI, Adult with Vitamin K 10 ML, Chromium/Copp IV SCH ×6 (05:23→06:05)
[2019-03-09] MEDS: Lactulose Soln 10 GM/15 ML 15 ML UD Cup PO SCH (09:54)
[2019-03-09] MEDS: prednisoLONE Acetate 1% Ophth Susp 5 ML Bottle EYEBOTH SCH (09:55)
[2019-03-09] MEDS: Enoxaparin 40 MG/0.4 ML Syringe SUBCUT SCH (09:55)
[2019-03-09] MEDS: Benazepril 10 MG Tab PO SCH (09:56)
--- NOTE | 2019-03-09 11:56 | PN ---
DATE OF SERVICE: 03/09/2019 SUBJECTIVE: The patient is improving today. He is tolerating diet. He is not taking p.o. pain medications. No nausea, vomiting, shortness of breath, or chest pain. Having bowel movements. OBJECTIVE: VITAL SIGNS: Stable. Afebrile. CARDIOVASCULAR: Regular rhythm and rate. RESPIRATORY: Lungs are clear to auscultation bilaterally. SKIN: Incisions healing well. ASSESSMENT: Status post small bowel resection. PLAN: 1. We will continue his IV antibiotics and saline-lock his fluids. 2. We will continue to advance his diet. 3. Increase activity. 4. He is to continue to shower. 5. We will ask Discharge Planning to begin evaluating the patient for potential discharge. Johnnie Durbin MD /[id number]
[2019-03-10] MEDS: Enoxaparin 40 MG/0.4 ML Syringe SUBCUT SCH (08:38)
[2019-03-10] MEDS: prednisoLONE Acetate 1% Ophth Susp 5 ML Bottle EYEBOTH SCH (08:38)
[2019-03-10] MEDS: Benazepril 10 MG Tab PO SCH (08:39)
[2019-03-10] MEDS ORDERED: Lactulose Soln 10 GM/15 ML 15 ML UD Cup PO SCH (09:00)
--- NOTE | 2019-03-10 11:02 | DISCH ---
DISCHARGE DIAGNOSIS: Status post small bowel resection. SUMMARY OF HOSPITAL COURSE: A pleasant 73-year-old male, who had an internal hernia. The patient underwent a laparoscopic small bowel resection. The patient secondary to inflammation around the Vicryl stitch. This was noted during re-exploration. No bowel was resected or any other abnormalities were noted. The patient eventually recovered from this quite well. On the day of discharge, he is tolerating his diet quite well. He is having well formed large bowel movements. His abdomen is not distended. [place] were intact without evidence of inflammation or infection, ambulating in the patterson without difficulty. His pain is rated as a 0/10 and is controlled with ibuprofen or no pain medication at all. FOLLOWUP: Surgery on Monday. ACTIVITY: No lifting greater than 30 pounds x30 days. DISCHARGE MEDICATIONS: Resume all normal home medications. No additional medications will be dispensed during this discharge.
--- NOTE | 2019-03-10 11:20 | PN ---
DATE OF SERVICE: 03/10/2019 SUBJECTIVE: The patient is doing very well today. Pain is 0. No nausea, vomiting, shortness of breath, or chest pain. He is tolerating diet with well-formed large bowel movements. OBJECTIVE: VITAL SIGNS: Stable. CARDIOVASCULAR: Regular rhythm and rate. RESPIRATORY: Lungs are clear to auscultation bilaterally. SKIN: Incision is healing well. [place] intact. ASSESSMENT: Status post small bowel resection. PLAN: The patient will be discharged today. Please see discharge instructions for further details. Johnnie Durbin MD /[id number]
== END 2019-03-10 13:00 | disposition home or self-care (01) | DRG 329 ==
LOC: JP.ED 23:22 → JP.MS 02-24 02:06
PROVIDERS: ADMIT Surgery; ATTEND Surgery
PROC: 0DB84ZZ Excision of Small Intestine, Percutaneous Endoscopic Approach (ICD-10-PCS; principal; 2019-02-24)
PROC: 0DQV4ZZ Repair Mesentery, Percutaneous Endoscopic Approach (ICD-10-PCS; 2019-02-24)
PROC: 0D9W4ZZ Drainage of Peritoneum, Percutaneous Endoscopic Approach (ICD-10-PCS; 2019-02-24)
PROC: 0WQF0ZZ Repair Abdominal Wall, Open Approach (ICD-10-PCS; 2019-03-03)
PROC: 0H97XZZ Drainage of Abdomen Skin, External Approach (ICD-10-PCS; 2019-03-03)
DX: K42.0 Umbilical hernia with obstruction, without gangrene (principal); K56.609 Unspecified intestinal obstruction, unspecified as to partial versus complete obstruction; K65.9 Peritonitis, unspecified; L76.34 Postprocedural seroma of skin and subcutaneous tissue following other procedure; K56.50 Intestinal adhesions [bands], unspecified as to partial versus complete obstruction; K59.00 Constipation, unspecified; Z88.2 Allergy status to sulfonamides; Z88.8 Allergy status to other drugs, medicaments and biological substances; Z79.82 Long term (current) use of aspirin; Z79.52 Long term (current) use of systemic steroids; Z79.51 Long term (current) use of inhaled steroids; Z79.899 Other long term (current) drug therapy; Z90.89 Acquired absence of other organs; Z87.442 Personal history of urinary calculi; Z85.820 Personal history of malignant melanoma of skin
CPT/HCPCS: 36415; 74176; 80053; 83690; 85025; 96374; 96375; 99284; 99285; J1170; J2405; J7030; 36569; 71250; 71250-26; 74018; 74019; 74021; 80048; 82962; 83735; 83880; 84100; 85027; 87070; 87075; 87076; 87077; 87205; 88302; 88307; 93005; 97161-GP; 97530-GP; A9270-GY; C1751; J0330; J0360; J0456; J0690; J0694; J1100; J1642; J1650; J1885; J2185; J2270; J2543; J2704; J2710; J3010; J3410; J3480; J3490; J7040; J7120